=== PATIENT | male | born 1935 | race Caucasian/White ===

== ENCOUNTER → 2017-07-29 | Outpatient (CLI) | payer OTHER, BC ==
[~2017-07-29] VITALS: Ht 182.9 cm; Wt 79.4 kg
[~2017-07-29] MED LIST: ASPIRIN EC81 M1 PO; ATENOLOL 25 MG25 M1 PO; CALCIUM 600 +1 EAC1 PO; CARDIO TAB PO; CELEBREX 200 M200 MG PO; COMBIGAN EYE DR10 ML PO; COSOPT OCUMETER10 M1; DICLOFENAC POTA50 MG PO; FISH OIL 1,0001 EAC5 PO; HYDROCODON-ACE1 EAC5 PO; HYDROCODON-ACE1 EAC7 PO; LISINOPRIL20 MG PO; MEDROLDOSEPACK PO; MELOXICAM7.5 MG PO; MOBIC7.5 MG PO; MULTI VITAMIN1 EACH PO; NEURONTIN 300300 M1 PO; NEURONTIN 300M300 M2 PO; OMEGA-31000 M1 PO; SIMVASTATIN40 MG PO; VITAMIN B125000 MCG PO; VITAMIN C + RO500 MG PO; VITAMIN D35000 UNI1 PO; XALATAN2.5 ML OPHTHALMIC
--- NOTE | ~2017-07-29 | HPC ---
[facility] [address] [place] [address] PAIN MANAGEMENT CONSULTATION Name: JAMEYMALENA Gaby VOGT Room #: REG [facility]#: [id number] Admission: 07/29/17 Attend Phys: Arnaldo Mayers DO Discharge: Date of : 36 Report #: [id number] THIS REPORT FOR: //name// CC: Arnaldo Kaufman DATE OF SERVICE: 07/29/2017 REFERRING PHYSICIAN: Jose Kaufman MD CHIEF COMPLAINT: Bilateral lower extremity pain and paresthesias. HISTORY OF PRESENT ILLNESS: As you know, the patient is a very pleasant 82-year-old male who returns today in followup visit to undergo spinal cord stimulator trial and implantation. The patient has received proper authorizations for the patient to undergo the procedure. He returns today in followup visit, stating a pain level of 2-3/10, states pain is chronic in nature, aching, constant numbness and tingling in sensation, exacerbated with activities and walking, improves with lying down. He returns today to undergo spinal cord stimulator trial and implantation in hopes of improving pain. He denies new injury, new trauma that may have led to progression of symptoms. ALLERGIES: No known drug allergies. CURRENT MEDICATIONS: Hydrocodone/acetaminophen 10/325, one tab every 8 hours p.r.n. for pain; Cosopt twice a day; gabapentin 300 mg p.o. q.a.m.; multivitamin 1 tab per day; aspirin 81 mg per day; latanoprost one drop each eye per day; simvastatin 40 mg per day; atenolol 25 mg once a day; lisinopril 20 mg once a day. SOCIAL HISTORY: The patient denies tobacco, alcohol, IV or illicit drug use. He is working, not receiving workmen's compensation, unaccompanied today. History of osteoarthritis, not applicable. Fall risk, he has not had a fall in the past 3 months. No trouble with standing or walking, on blood thinners, no hypertension. Yes with current treatment, opioid therapy greater than 6 weeks is positive with a contract on chart. Opioid risk, too low risk. Functional assessment 35/70. PHYSICAL EXAMINATION: VITAL SIGNS: Blood pressure 143/70, pulse 70, respiratory rate 14 and unlabored. The patient is 98% on room air, height 6 feet tall, weight 175 pounds, BMI calculated 23.7. GENERAL: Well-developed, well-nourished, well-hydrated 82-year-old male appearing his stated age, placing current pain score 2-3/10. HEENT: Normocephalic, atraumatic. Pupils equal, round, reactive to light. [facility] [address] [place] [address] PAIN MANAGEMENT CONSULTATION Name: MALENA CONCEPCION JR Room #: REG [facility] Luis#: [id number] Admission: 07/29/17 Attend Phys: Arnaldo Mayers DO Discharge: Date of : 36 Report #: [id number] Extraocular muscles are intact. EXTREMITIES: Show no clubbing, no cyanosis, no edema. MUSCULOSKELETAL: Lower extremity strength equal and symmetrical, 5/5. Seated straight leg raising negative. Supine straight leg raising positive. Ling's test negative. Modified Gaenslen's positive for axial low back pain. Ankle clonus negative. Babinski is negative. ASSESSMENT: 1. Symptomatic lumbar radiculopathy. 2. Spinal stenosis of lumbar spine. 3. Displacement of lumbar intervertebral disk with radiculopathy. 4. Lumbosacral spondylosis with radiculopathy. 5. Lumbar degeneration. 6. Chronic intractable pain. PLAN: 1. The patient has returned today in followup visit to undergo spinal cord stimulator trial and implantation. The patient has successfully completed all evaluations and has received preauthorization for the patient to undergo the procedure. We have advised the patient of the risks and benefits of the procedure. These risks include but are not necessarily limited to bleeding, bruising, infection, worsening pain, no relief of pain, also risk of temporary or permanent muscle weakness, temporary or permanent nerve damage, possible paralysis and . The patient states understood and wished to proceed. 2. No medication changes were made at today's visit. The patient will continue current medical therapy as previously prescribed. 3. The patient to return to our clinic in 1 week. At that time, review the efficacy of the spinal cord stimulator trial to determine if permanent implant would be recommended. PROCEDURE NOTE DESCRIPTION OF PROCEDURE: Spinal cord stimulator trial and implantation. After obtaining written consent, a 22-gauge IV Hep-Lock was placed in the patient's right upper extremity. The patient was given IV prophylactic antibiotic over 30 minutes prior to procedure. The patient was then taken the fluoroscopy suite, placed in prone position with 2 pillows under abdomen to decrease the lumbar lordosis. Cardiopulmonary monitoring was established and the patient's vital signs were monitored throughout the procedure. The patient's thoracolumbar spine was prepped and draped with chlorhexidine and draped off in a sterile fashion. The patient was given no IV sedation prior to the procedure. AP fluoroscopic view was obtained to identify marked midline positions of the T10 through L2 spinous processes. Skin was anesthetized with 1% lidocaine, 5 mL on the left, 5 mL on the right for a total of 10 mL being provided. This was done prior to the introduction of 14-gauge 4 inch Tuohy needle. Skin entry site [address] [address] PAIN MANAGEMENT CONSULTATION Name: MALENA CONCEPCION JR Room #: REG [facility].#: [id number] Admission: 07/29/17 Attend Phys: Arnaldo Mayers DO Discharge: Date of : 36 Report #: [id number] was at the approximate level of the L1 vertebral body. Needle was advanced using a paramedian approach to the right of midline, approximately 45 degree angle. Loss of resistance to air was utilized to verify placement within the epidural space. Epidural space entered at the T12-L1 interspace. Lateral fluoroscopic view was obtained to confirm the position of the tip of the Tuohy needle within the epidural space. Aspiration noted to be negative for heme or cerebrospinal fluid. The patient did not complain of pain or paresthesias during needle placement. Spinal cord stimulating lead was then advanced through the Tuohy needle under direct visualization in the midline. Tip of the stimulating lead was aligned with the middle point of the T7 vertebral body, located in the midline. At this point, our attention was then directed to the left side. A 14-gauge 4 inch needle was advanced under fluoroscopic guidance at entry site of approximately L1 vertebral body. Needle was advanced using a paramedian approach to the midline approximately 45 degree angle. Loss of resistance to air was utilized to verify placement within the epidural space. Epidural space was entered at the T12-L1 interspace. Fluoroscopic imaging was obtained to confirm the position of the Tuohy needle within the epidural space. Aspiration noted to be negative for heme or cerebrospinal fluid. The patient did not complain of pain or paresthesia during needle placement. Spinal cord stimulating lead was then advanced through the Tuohy needle under direct visualization within the midline. Tip of the stimulating lead was aligned with the superior endplate of T8 vertebral body, located within midline. The stylets were then removed from the spinal cord stimulating leads. The Tuohy needles were then removed. We verified position of the leads throughout the removal process. We then anchored the leads on the patient's back with Steri-Strips and OpSite bandaging. Imaging was then obtained after the patient performed multiple calisthenics maneuvers, which had indicated no movement of the leads during this taping procedure or calisthenics procedures. The patient tolerated procedure well, carefully escorted to recovery room without complication. We spent over 30 minutes time, programming the spinal cord stimulator to obtain optimal coverage of the patient's pain. After meeting our discharge criteria, the patient was then discharged home. <ELECTRONICALLY SIGNED> By: Arnaldo Mayers DO 08/06/17 0902 [id number] Arnaldo Mayers DO /nt
[2017-07-29 07:10] VITALS: BP 143/70
== END | disposition home or self-care (01) ==
LOC: PAIN 06:52
DX: Z46.2 Encounter for fitting and adjustment of other devices related to nervous system and special senses (principal); M51.16 Intervertebral disc disorders with radiculopathy, lumbar region; M48.061 Spinal stenosis, lumbar region without neurogenic claudication; M47.27 Other spondylosis with radiculopathy, lumbosacral region; M51.36 Other intervertebral disc degeneration, lumbar region; G89.29 Other chronic pain; Z79.891 Long term (current) use of opiate analgesic; Z79.82 Long term (current) use of aspirin

== ENCOUNTER → 2017-08-04 | Outpatient (CLI) | payer OTHER, BC ==
--- NOTE | ~2017-08-04 | HPC ---
[facility] [place] [address] PAIN MANAGEMENT CONSULTATION Name: MALENA CONCEPCION Gaby Room #: REG [facility].#: [id number] Admission: 08/04/17 Attend Phys: Arnaldo Mayers DO Discharge: Date of : 36 Report #: [id number] THIS REPORT FOR: //name// CC: Arnaldo Kaufman MD DATE OF SERVICE: 08/04/2017 REFERRING PHYSICIAN: Jose Kaufman MD CHIEF COMPLAINT: Low back pain, bilateral lower extremity pain with paresthesias. HISTORY OF PRESENT ILLNESS: As you know, the patient is a very pleasant 82-year-old male who returns today in followup visit for discussion of efficacy with the spinal cord stimulator trial he has done over the past week. The patient indicates good efficacy with the device. At one point in time, he was reporting 100% improvement in overall pain, unfortunately we lost capture of his pain after some activities over the weekend. He does feel it is a successful trial. He returns today in followup visit to image the current position of the leads and to discuss possible moving forward with permanent implant. ALLERGIES: No known drug allergies. CURRENT MEDICATIONS: Hydrocodone, Cosopt, gabapentin, multivitamin, aspirin, latanoprost, simvastatin, atenolol, and lisinopril. SOCIAL HISTORY: The patient denies tobacco, alcohol, IV or illicit drug use. He is working, not receiving workmen's compensation, unaccompanied today. PQRS: The patient has no significant history of osteoarthritis, he is not a fall risk and has not had a fall in last 3 months. He has no trouble with standing or walking. He is on no blood thinners. His blood pressure is slightly elevated, but he is receiving treatment medically for his hypertension. The patient has been on opioid therapy greater than 6 weeks with a positive contract on chart, so opioid risk is extremely low. Functional assessment is 35/70. PHYSICAL EXAMINATION: VITAL SIGNS: Blood pressure 136/60, pulse is 72, respiratory rate 14 and unlabored, the patient is 98% on room air. GENERAL: Well-developed, well-nourished, well-hydrated 82-year-old male, appearing his stated age, he is placing current pain score at 2/10. HEENT: Normocephalic, atraumatic. Pupils are equal, round, and reactive to light. Extraocular muscles are intact. Sclerae are nonicteric without [address] [address] PAIN MANAGEMENT CONSULTATION Name: MALENA CONCEPCION JR Room #: REG [facility]#: [id number] Admission: 08/04/17 Attend Phys: Arnaldo Mayers DO Discharge: Date of : 36 Report #: [id number] injection. NEUROLOGIC: Cranial nerves 2-12 grossly intact. Speech is fluent. EXTREMITIES: Show no clubbing, no cyanosis, and no edema. MUSCULOSKELETAL: Lower extremity strength appears equal and symmetrical 5/5, muscle bulk and tone equal and symmetrical in lower extremities. Seated straight leg raising negative. Supine straight leg raising positive. Ling's test negative. ASSESSMENT: 1. Symptomatic lumbar radiculopathy. 2. Spinal stenosis of lumbar spine. 3. Displacement of lumbar intervertebral disk with radiculopathy. 4. Lumbosacral spondylosis with radiculopathy. 5. Lumbar degeneration. 6. Chronic intractable pain. PLAN: 1. The patient returns today in followup visit having good efficacy with the spinal cord stimulator, he does wish to move forward with the device itself. He had times during the trial where he was 100% improvement in overall pain, he has not had to resort back to any of his medications for pain control. He is extremely pleased with response to the treatment, does wish to move forward with the permanent implant. We did have loss of pain control that began basically late Friday and Friday, it appears that the leads had displaced, we took x-ray imaging and it did appear that the leads had moved cephalad losing contact with the "sweet spot" at the T9-10 level. The patient did have a significant improvement in symptoms during the trial itself and he does feel this is an effective treatment option and wishes to move forward. Given the fact the patient received excellent benefit during that timeframe prior to the Friday evening, Friday morning time frame, I do feel that it is an appropriate option to move forward as well. 2. No medication changes were made at today's visit. The patient will continue current medical therapy as previously prescribed. 3. We will see the patient back in followup visit on an as needed basis. We will be referring the patient to undergo permanent implant as quickly as possible, begin the process of referring for this permanent implant to be done at the patient's earliest convenience. PROCEDURE NOTE DESCRIPTION OF PROCEDURE: Explantation of spinal cord stimulating leads. After obtaining consent, the patient was placed in a seated position. The Steri-Strips and OpSite bandaging was removed from the patient's thoracolumbar area. Two leads were in place. There is no erythema, no drainage around the lead insertion sites. The leads were slowly extracted until both leads were [address] [address] PAIN MANAGEMENT CONSULTATION Name: MALENA CONCEPCION JR Room #: REG [facility]#: [id number] Admission: 08/04/17 Attend Phys: Arnaldo Mayers DO Discharge: Date of : 36 Report #: [id number] fully removed. Both leads had their 8 electrodes and tips intact. Bandages were placed over the insertion sites. The patient tolerated the explantation of the 2 spinal cord stimulating leads without complication. After meeting our discharge criteria, the patient discharged home. <ELECTRONICALLY SIGNED> By: Arnaldo Mayers DO 08/06/17 0902 0730 0813 Arnaldo Mayers DO /nt
[2017-08-04 13:28] VITALS: BP 136/60
== END ==
LOC: PAIN 07:03
DX: M48.061 Spinal stenosis, lumbar region without neurogenic claudication (principal); M51.16 Intervertebral disc disorders with radiculopathy, lumbar region; M47.27 Other spondylosis with radiculopathy, lumbosacral region; R20.2 Paresthesia of skin; G89.29 Other chronic pain

== ENCOUNTER → 2018-02-10 | Outpatient (CLI) | payer OTHER, BC ==
[~2018-02-10] VITALS: Ht 167.6 cm; Wt 82.2 kg
--- NOTE | ~2018-02-10 | HPC ---
[address] [address] PAIN MANAGEMENT CONSULTATION Name: MALENA CONCEPCION JR Room #: REG [facility] Allan.#: [id number] Admission: 02/10/18 Attend Phys: Arnaldo Mayers DO Discharge: Date of : 36 Report #: [id number] THIS REPORT FOR: //name// CC: Arnaldo Kaufman DATE OF SERVICE: 02/11/2018 CHIEF COMPLAINT: Low back pain, bilateral lower extremity pain with paresthesias. HISTORY OF PRESENT ILLNESS: As you know, the patient is an extremely pleasant 82-year-old male who returns today in followup visit to discuss spinal cord stimulator permanent implantation. He has some questions about the permanent implant before it is completed on 02/19/[address] Bryant. The patient indicates today pain level of around 2-3/10. Overall, the patient states he is doing pretty well. He returns requesting refill on his [place] to help with pain as he awaits the permanent implant. He is also wishing to begin the process of establishing appointments for postoperative incision evaluations. He returns to discuss these questions in regards to spinal cord stimulator and to schedule his followup appointments. ALLERGIES: No known drug allergies. CURRENT MEDICATIONS: Hydrocodone, Cosopt, gabapentin, multivitamin, aspirin, latanoprost, simvastatin, atenolol, lisinopril. SOCIAL HISTORY: The patient denies tobacco, alcohol, IV or illicit drug use. He is working, not receiving workmen's compensation, unaccompanied today. IMAGING: There is no new imaging available. PQRS: The patient has known osteoarthritis of the low back. No rheumatoid arthritis. He indicates pain intensity of 2-3/10. He is not a fall risk, has not had a fall in the last 3 months. He is not on blood thinners. He is treated for hypertension. He is on chronic opioids, but has no side effects to this treatment. He has a low risk for opioid dependency. PHYSICAL EXAMINATION: VITAL SIGNS: Blood pressure 111/61, pulse 63, respiratory rate 16, unlabored. The patient is 96% on room air. Height 5 feet 6 inches tall, weight 181.2 pounds, BMI calculated at 29.3. GENERAL: Well-developed, well-nourished, well-hydrated 82-year-old male. He appears his stated age, placing current pain score around 2-3/10. HEENT: Normocephalic, atraumatic. Pupils equal, round, [place] [address] PAIN MANAGEMENT CONSULTATION Name: MALENA CONCEPCION Gaby Room #: REG [facility]#: [id number] Admission: 02/10/18 Attend Phys: Arnaldo Mayers DO Discharge: Date of : 36 Report #: [id number] Extraocular muscles are intact. EXTREMITIES: Show no clubbing, no cyanosis, no edema. MUSCULOSKELETAL: Lower extremity strength is symmetrical 5/5, muscle bulk and tone equal and symmetrical. Seated straight leg raising negative. Supine straight leg raising positive. Fabere's test negative. Modified Gaenslen's positive for axial back pain. Ankle clonus negative. Babinski's negative. ASSESSMENT: 1. Symptomatic lumbar radiculopathy. 2. Spinal stenosis of lumbar spine. 3. Displacement of lumbar intervertebral disk with radiculopathy. 4. Lumbosacral spondylosis with radiculopathy. 5. Lumbar degeneration. 6. Chronic intractable pain. PLAN: 1. The patient returns today in followup visit what we have set for approximately 22 minutes and discussed his questions and concerns about spinal cord stimulator permanent implant. After this discussion, the patient felt more confident with moving forward with the procedure itself. He has a full understanding of the surgical procedure, the limitations he will have directly post surgery as well as limitations he will have for the first 6-8 weeks limiting both lifting above his head and reaching and bending at his waist. After this discussion, the patient felt comfortable. He is going to move forward with permanent implant. We have provided the patient with a refill of his hydrocodone 10/325 one tab every 8 hours p.r.n. for pain. I have given the patient #90 tablets. The patient was advised he can use this for his typical chronic pain, but also, he can use these if his surgical pain is intolerable. He has #90 tablets, will be willing to refill these if necessary post surgery. 2. The patient will be established an appointment on 02/25/2018 for first evaluation of surgical incisions. He will also then have a second established appointment on 03/04/2018 for 2-week followup for incisions. These were set on the books today. If he needs to make any alterations, he can contact our clinic. We wish the patient a good luck with his permanent implant of the spinal cord stimulator. I am sure he will do very well. We will see him back as indicated above. By: 1305 0031 Arnaldo Mayers DO /nt
[2018-02-10 09:47] VITALS: BP 111/61
== END ==
LOC: PAIN 06:57
DX: M47.27 Other spondylosis with radiculopathy, lumbosacral region (principal); M48.061 Spinal stenosis, lumbar region without neurogenic claudication; M51.16 Intervertebral disc disorders with radiculopathy, lumbar region; G89.4 Chronic pain syndrome

== ENCOUNTER → 2018-02-25 | Outpatient (CLI) | payer OTHER, BC ==
[~2018-02-25] VITALS: Ht 175.3 cm; Wt 82.6 kg
--- NOTE | ~2018-02-25 | HPC ---
[facility] [place] [address] PAIN MANAGEMENT CONSULTATION Name: JAMEYMALENAKAI VOGT Room #: [facility] [id number] Admission: 02/25/18 Attend Phys: Arnaldo Mayers DO Discharge: Date of : 36 Report #: [id number] THIS REPORT FOR: //name// CC: Arnaldo Kaufman DATE OF SERVICE: 02/25/2018 CHIEF COMPLAINT: Low back pain, bilateral extremity pain, right posterolateral thigh pain. HISTORY OF PRESENT ILLNESS: As you know, the patient is extremely pleasant 82-year-old male who returns today in followup visit having completed a spinal cord stimulator implantation. He underwent implantation last week and is returning to our clinic for a wound evaluation. He indicates he has done well from a surgical standpoint. His wounds have been healing appropriately. He is having some right posterolateral thigh pain directly over the greater trochanteric bursa. Deep palpation of the area causes intensification of pain. The patient has returned to discuss this new onset of pain on the right side, but also for wound checks. ALLERGIES: No known drug allergies. CURRENT MEDICATIONS: Hydrocodone, Cosopt, gabapentin, multivitamin, aspirin, latanoprost, simvastatin, atenolol, lisinopril. SOCIAL HISTORY: The patient denies tobacco, alcohol, IV or illicit drug use. He is working, not receiving workmen's compensation, unaccompanied today. IMAGING: No new imaging available. PQRS: The patient has osteoarthritis in low back. No rheumatoid arthritis. He is placing pain intensity around 3/10. He is not a fall risk, has not had a fall in the last 3 months. He is not on blood thinners. He is treated for hypertension. He is on chronic opioids and has low risk for opioid dependency. PHYSICAL EXAMINATION: VITAL SIGNS: Blood pressure 115/65, pulse 57, respiratory rate 14 and unlabored. The patient is 99% on room air. Height 5 feet 9 inches tall, weight 182 pounds, BMI calculated at 26.9. GENERAL: Well-developed, well-nourished, well-hydrated 82-year-old male. He appears his stated age. He is placing current pain score no greater than 3/10. HEENT: Normocephalic, atraumatic. Pupils equal, round, reactive to light. Speech is fluent. EXTREMITIES: Show no clubbing, no cyanosis, no edema. [address] [address] PAIN MANAGEMENT CONSULTATION Name: MALENA CONCEPCION JR Room #: [facility] [id number] Admission: 02/25/18 Attend Phys: Arnaldo Mayers DO Discharge: Date of : 36 Report #: [id number] MUSCULOSKELETAL: The patient has well-healed lower thoracic upper lumbar incision. This appears to be healing very well. There remains some granulation tissue over the incision, but this appears to be healing appropriately. The patient has a second incision over the right buttock area. There is some ecchymosis in the pocket itself, but the incision appears clean, dry, intact and healing well. There is some granulation tissue that remains. There is also noted palpatory tenderness over the right greater trochanteric bursa. Deep palpation causes intensification of pain. ASSESSMENT: 1. Chronic lumbar radiculopathy. 2. Spinal stenosis of lumbar spine. 3. Displacement of lumbar intervertebral disk with radiculopathy. 4. Lumbosacral spondylosis with radiculopathy. 5. Lumbar degeneration. 6. Greater trochanteric bursitis. 7. Chronic intractable pain. PLAN: 1. The patient returns today in followup visit for wound check, status post permanent implantation of a spinal cord stimulator. The patient did very well with the surgery. He is returning today for a wound evaluation. He appears to be healing appropriately. There is no concern of infection at present. The wounds do appear to be healing well. There is some granulation tissue both over the lower thoracic and upper lumbar area and the right pulse generator pocket, this is fairly typical for 1 week postop. I recommend the patient to be watchful and mindful of the area. He is to pat the areas out if he notes any irritation. We will see him back in 1 week for the second wound evaluation. 2. The patient does appear to have some greater trochanteric bursitis. Deep palpation of the area causes intensification of pain. We have provided the patient with samples of Flector and diclofenac oral medications to trial to help with the anti-inflammatory effects. If he is not improved by our next visit next week, we could consider the initiation of a steroid pack for the bursitis. If this is ineffective, bursa injections could be warranted. We will discuss this at followup visit. 3. We will see the patient back in followup visit 1 week from today for the second wound check from his spinal cord stimulator implant. <ELECTRONICALLY SIGNED> By: Arnaldo Mayers DO 02/26/18 0818 [id number] Arnaldo Mayers DO /nt
[2018-02-25 10:30] VITALS: BP 115/65
== END ==
LOC: PAIN 07:32
DX: M47.27 Other spondylosis with radiculopathy, lumbosacral region (principal); M51.16 Intervertebral disc disorders with radiculopathy, lumbar region; M48.061 Spinal stenosis, lumbar region without neurogenic claudication; G89.4 Chronic pain syndrome; M70.61 Trochanteric bursitis, right hip; Y93.89 Activity, other specified

== ENCOUNTER → 2018-05-27 | Outpatient (CLI) | payer OTHER, BC ==
[~2018-05-27] VITALS: Ht 175.3 cm; Wt 83.0 kg
--- NOTE | ~2018-05-27 | HPC ---
[facility] [address] [place] [address] PAIN MANAGEMENT CONSULTATION Name: JAMEYMALENAKAI VOGT Room #: REG BENJI Luis#: [id number] Admission: 05/27/18 Attend Phys: Arnaldo Mayers DO Discharge: Date of : 36 Report #: [id number] THIS REPORT FOR: //name// CC: Arnaldo Kaufman MD DATE OF SERVICE: 05/27/2018 CHIEF COMPLAINT: Low back pain, bilateral lower extremity pain with paresthesias, right greater than left. HISTORY OF PRESENT ILLNESS: As you know, the patient is a very pleasant 82-year-old male who returns today in followup visit for adjustments in his spinal cord stimulator. Unfortunately, his permanent implant has been less effective at treating symptoms than his trial implantation. The patient returns today for adjustments in his therapy in hopes of improving pain. He is also requesting refills of the hydrocodone as he awaits efficacy with the device implantation. He indicates pain today at level of 2-3/10. States pain is aching, constant, fire-like sensation and tender; exacerbated with walking, touching activities, lying on his left side; improves with medications and repositioning. He returns today for adjustments in his spinal cord stimulator and to receive refills of medications. ALLERGIES: No known drug allergies. CURRENT MEDICATIONS: Hydrocodone, Cosopt, gabapentin, multivitamins, aspirin, latanoprost, simvastatin, atenolol, lisinopril. SOCIAL HISTORY: The patient denies tobacco, alcohol, IV or illicit drug use. He is working, not receiving workmen's compensation, unaccompanied today. IMAGING: No new imaging available. PQRS: The patient has osteoarthritis, low back, bilateral hips mildly, bilateral knees mild, no rheumatoid arthritis. He is placing pain intensity at around 2-3/10. He is not a fall risk, has not had a fall in the last 3 months. He is not on blood thinners. He is treated for hypertension. He has been on opioids for an extended period of time. He has a low risk for opioid addiction. Pain impact tool indicates pain level of indicating mild interference of daily activities secondary to pain. PHYSICAL EXAMINATION: VITAL SIGNS: Blood pressure 130/71, pulse 63, respiratory rate 18 and unlabored. The patient is 98% on room air. Height 5 feet 9 inches tall, weight 183 pounds, BMI calculated 27. [address] [address] PAIN MANAGEMENT CONSULTATION Name: MALENA CONCEPCION Room #: REG [facility]#: [id number] Admission: 05/27/18 Attend Phys: Arnaldo Mayers DO Discharge: Date of : 36 Report #: [id number] GENERAL: Well-developed, well-nourished, well-hydrated 82-year-old male appearing stated age, placing current pain score 2-3/10. HEENT: Normocephalic, atraumatic. Pupils equal, round, reactive to light. Extraocular muscles are intact. Speech fluent. EXTREMITIES: Show no clubbing, no cyanosis, no edema. MUSCULOSKELETAL: The patient has well-healed surgical scar over the pulse generator site and the insertion site of the leads, well healed, no erythema, no drainage. He does have positive seated straight leg raising in the seated and supine position, mainly on the right. Pain is elicited with movement of the left leg in the Ling's procedure. ASSESSMENT: 1. Symptomatic lumbar radiculopathy. 2. Spinal stenosis of lumbar spine. 3. Displacement of lumbar intervertebral disk with radiculopathy. 4. Lumbosacral spondylosis with radiculopathy. 5. Lumbar degeneration. 6. Chronic intractable pain. PLAN: 1. The patient returns today in followup visit for further adjustment in his spinal cord stimulator. Unfortunately, his permanent implant has not been providing benefit as he had seen with the original trial implant. The patient indicates that he is receiving some benefit on the left, but there is no improvement on the right. This appears to be related to the positioning of the leads, possible adjustment may be necessary surgically though at this point, we will make some adjustments in the programming in hopes of improving pain. We will then adjust lead position if necessary in the future. We made multiple adjustments in the patient's spinal cord stimulator today with the assistance of the [facility] device phlebotomy services representative. We will determine if this is more effective. 2. The patient was provided prescription of hydrocodone 10/325 for which he takes 1 tab 3 times a day. I have given the patient #90 tablets, releases of today, 4 weeks from today, 8 weeks from today, 3 months' worth of medication. The patient was advised to take this medication only when pain is intolerable, not to rely on the medication prophylactically. 3. We will see the patient back in followup visit in 3 months for medication management, earlier if he needs further adjustments in his spinal cord stimulator or to discuss adjustments of the lead positioning to address ongoing pain. By: [id number] Arnaldo Mayers DO /nt
[2018-05-27 10:32] VITALS: BP 138/71
== END ==
LOC: PAIN 05-19 06:39
DX: M54.5 Low back pain (principal); M25.551 Pain in right hip; G89.29 Other chronic pain; Z79.891 Long term (current) use of opiate analgesic; Z79.899 Other long term (current) drug therapy

== ENCOUNTER → 2018-07-21 | Outpatient (CLI) | payer OTHER, BC ==
[~2018-07-21] VITALS: Ht 175.3 cm; Wt 83.9 kg
--- NOTE | ~2018-07-21 | HPC ---
[facility] [address] [place] [address] PAIN MANAGEMENT CONSULTATION Name: MALENA CONCEPCION JR Room #: REG MARIA MosesHelderFelipeHelder#: [id number] Admission: 07/21/18 Attend Phys: Arnaldo Mayers DO Discharge: Date of : 36 Report #: [id number] THIS REPORT FOR: //name// CC: Arnaldo Kaufman MD DATE OF SERVICE: 07/21/2018 REFERRING PHYSICIAN: Jose Kaufman M.D. CHIEF COMPLAINT: Low back pain and bilateral lower extremity pain with paresthesias, right greater than left. HISTORY OF PRESENT ILLNESS: As you know, the patient is a very pleasant 82-year-old male returning in followup visit to discuss treatment options for residual pain. Unfortunately, the patient's spinal cord stimulator has not provided the benefit. We had hoped he would see with the device itself. He has decided to turn the device off and has noted no change in his overall pain. He returns to request options for treatment for residual lumbar radicular symptoms. He is placing pain score today at around 2/10, states pain is constant, aching, fire-like sensation and tender and the pain is exacerbated with activities, walking, touching, lying on his right hip and improves with lying down and medications. He returns today for a discussion of other treatment options. ALLERGIES: No known drug allergies. CURRENT MEDICATIONS: Hydrocodone, Cosopt, gabapentin, multivitamin, aspirin, latanoprost, simvastatin, atenolol and lisinopril. SOCIAL HISTORY: The patient denies tobacco, alcohol or IV or illicit drug use. He is working, not receiving workmen's compensation, unaccompanied today. IMAGING DATA: No new imaging available. PQRS: The patient has known arthritic changes in the low back, bilateral hips and bilateral knees. No rheumatoid arthritis. He is placing his pain intensity today 2/10. He is not a fall risk, has not had a fall in the last 3 months. He is not on blood thinners. He is treated for hypertension. He has been on opioids for greater than 6 weeks. He is a low risk for opioid addiction. He is placing a pain impact score 11/70, mild interference of daily activities secondary to pain. PHYSICAL EXAMINATION: VITAL SIGNS: Blood pressure 115/65, pulse 64 and respiratory rate 16 and unlabored. The patient is 100% on room air. Height 5 feet 9 inches tall, [address] [address] PAIN MANAGEMENT CONSULTATION Name: MALENA CONCEPCION Gaby VOGT Room #: REG [facility]#: [id number] Admission: 07/21/18 Attend Phys: Arnaldo Mayers DO Discharge: Date of : 36 Report #: [id number] weight 185 pounds and BMI calculated 27.3. GENERAL: Well-developed, well-nourished, well-hydrated 82-year-old male appearing stated age, placing current pain score 2/10. HEENT: Normocephalic and atraumatic. Pupils equal, round and reactive to light. EXTREMITIES: Show no clubbing, no cyanosis and no edema. MUSCULOSKELETAL: Lower extremity strength equal and symmetrical 5/5. Seated straight leg raising negative. Supine straight leg raising positive on the right. Ling's test negative. ASSESSMENT: 1. Symptomatic lumbar radiculopathy. 2. Spinal stenosis of the lumbar spine. 3. Displacement of the lumbar intervertebral disk with radiculopathy. 4. Lumbosacral spondylosis with radiculopathy. 5. Lumbar degeneration. 6. Chronic intractable pain. PLAN: 1. The patient returns today in followup visit where we have discussed his spinal cord stimulator. The patient has had multiple adjustments made to the device over the past year and despite these adjustments, his symptoms have not improved. I have discussed this with the representatives of the device foam charger and they are in agreement. They did not feel the patient was going to see benefit with this device further. The patient has discontinued its use and has noted no change in overall pain. We discussed other options for treatment today and the following was discussed. We discussed physical therapy, stretching exercise, core strengthening. We discussed medication management to control pain. We discussed epidural injections, medial branch nerve blocks, radiofrequency lesioning as treatment options to address ongoing pain. We also discussed ultimately surgical intervention. After reviewing risks and benefits of all proposed treatment options and given the efficacy is noted with the medications, he chose to adjust medications. 2. The patient was provided prescription of hydrocodone/acetaminophen 10/325 one tab p.o. q. 6 hours p.r.n. for pain. I have given the patient #120 tablets. The patient states that he takes half a dose in the morning and a full dose at around 2:00. He does fairly well on normal days. There are sometimes he feels the pain exacerbate and he has to take as many as four a day and even with this for a day dosing, he is doing very well and no side effects with the therapy. It does appear he is doing well with medication and there is no need to look into other treatment options if this is ineffective treatment option for the patient. We discussed this again today. The patient feels comfortable with continuing opioid medications for pain control. I have advised the patient if his concerns are for acute exacerbation of symptoms with increasing activity, he [address] [place] [address] PAIN MANAGEMENT CONSULTATION Name: MALENA CONCEPCION JR Room #: [facility] [id number] Admission: 07/21/18 Attend Phys: Arnaldo Mayers DO Discharge: Date of : 36 Report #: [id number] can take the dose of hydrocodone 20 minutes before the participating in these higher-level activities and this should improve his overall pain. It certainly will not improve long-term stamina but will improve overall pain. The patient is amenable to make this adjustment. 3. We will see the patient back in followup visit in 3 months. We will discuss the efficacy of the medication at the followup visit. If he has questions or concerns, he can contact the clinic at any time. By: [id number] Arnaldo Mayers DO /nt
[2018-07-21 13:09] VITALS: BP 115/65
--- NOTE | 2018-07-21 13:21 | NUR ---
Pain Clinic Assessment: 1. History of Osteoarthritis: BACK HANDS History of Rheumatoid Arthritis: Not Applicable 2. Height: 5 ft. 9 in. 175.3 cm. Weight: 185.0 lb. oz. 83.916 kg. Patient's BMI: 27.3 3. Vital Signs: BP: 115/65 Pulse: 64 Resp: 16 Temp: 02 Sat: 100 ECG Mon: 4. Pain Intensity: 2 5. Fall Risk: Dizziness: N Needs help standing or walking: N Fallen in the last 3 months: N Fall risk comments: 6. Patient on Blood Thinner: None 7. History of Hypertension: Y 8. Opioid Therapy greater than 6 weeks: Y Opiate Contract Signed: 9. Risk Assessment Tool Provided: LOW RISK 10. Functional Assessment Tool: 11. Recreational Drug Use: Never Drug Type: Tobacco Use: Never Smoker Tobacco Type: Amount or Packs/day: How Many Years: Alcohol Use: No Frequency: Quant:
== END ==
LOC: PAIN 06:55
DX: M47.27 Other spondylosis with radiculopathy, lumbosacral region (principal); M48.061 Spinal stenosis, lumbar region without neurogenic claudication; G89.4 Chronic pain syndrome; R20.2 Paresthesia of skin

== ENCOUNTER → 2018-09-23 | Outpatient (CLI) | payer OTHER, BC ==
[~2018-09-23] VITALS: Ht 175.3 cm; Wt 80.7 kg
[~2018-09-23] MED LIST changes: +MOVANTIK25 MG PO; +OXYCODONE-ACET1 EAC2 PO
--- NOTE | ~2018-09-23 | HPC ---
[facility] [place] [address] PAIN MANAGEMENT CONSULTATION Name: MALENA CONCEPCION JR Room #: REG [facility] Luis#: [id number] Admission: 09/23/18 ������������������ Attend Phys: Arnaldo Mayers DO Discharge: ������������������ Date of : 36 Report #: [id number] THIS REPORT FOR: //name// CC: Arnaldo Kaufman DATE OF SERVICE: 09/23/2018 ADDENDUM MUSCULOSKELETAL: The patient is exquisitely tender to palpation at the T11 level. Deep palpation of the area causes intensification of pain. There also appears to be increased tenderness over the L1 spinous process. Deep palpation again causes intensification of pain. Lower extremity strength is symmetrical. There is no ecchymosis over area. ASSESSMENT: 1. Concern for thoracic compression fracture. 2. Lumbosacral spondylosis with radiculopathy. 3. Chronic lumbar radiculopathy. PLAN: 1. 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 I am very concerned that the patient may have suffered a compression fracture at the levels indicated above, T11 and L1. I recommend the patient undergo x-ray imaging immediately, the results will then help determine the course of treatment. The patient will undergo x-ray imaging of the thoracolumbar area at his earliest convenience. We will review the findings once they are available. 2. We did discuss the possibility of having the patient treated for compression fractures. We discussed today rest, relaxation and decreasing weight lifting, which would allow the fractures to remain relatively stable. We discussed the possibility of utilizing TLSO bracing or even a kyphoplasty procedure. These recommendations were given to the patient in general form at the visit today. It will depend on the findings of the x-ray before we move forward with any definitive treatment options. The patient is amenable to all the treatment options, but wishes to remain as conservative as possible at this time. 3. We have agreed to increase his hydrocodone 10/325 to oxycodone 10/325 for a short period of time. I have given the patient #90 tablets, advised the patient to watch for severe constipation, somnolence, decreased mental acuity, disorientation with the use of the higher dose opioid. He is to utilize the medication only when pain is intolerable. He was given #90 tablets with no refills. 4. The patient has requested and we have provided a medication for opioid-induced constipation in the form of Movantik 25 mg dose 1 tablet p.o. q. day. I have given the patient #30 tablets to take when necessary. He was given [address] [address] PAIN MANAGEMENT CONSULTATION Name: MALENA CONCEPCION Room #: [facility] [id number] Admission: 09/23/18 ������������������ Attend Phys: Arnaldo Mayers DO Discharge: ������������������ Date of : 36 Report #: [id number] the prescription in written form today. 6. The patient will contact our clinic tomorrow morning. If we do not hear from him, we will contact him to advise the findings of the x-ray imaging and to determine if more aggressive treatment options will be necessary. ��������������������������������������������� ���������������������������������������� By: ��������������������������������������������� [id number] Arnaldo Mayers DO /nt
--- NOTE | ~2018-09-23 | HPC ---
[facility] [address] [place] [address] PAIN MANAGEMENT CONSULTATION Name: JAMEYMALENAKAI VOGT Room #: REG [facility] [id number] Admission: 09/23/18 ������������������ Attend Phys: Arnaldo Mayers DO Discharge: ������������������ Date of : 36 Report #: [id number] THIS REPORT FOR: //name// CC: Arnaldo Kaufman DATE OF SERVICE: 09/23/2018 REFERRING PHYSICIAN: Jose Kaufman MD CHIEF COMPLAINT: Mid thoracic pain. HISTORY OF PRESENT ILLNESS: As you know, the patient is a very pleasant 83-year-old male returning in followup visit with acute onset of mid thoracic pain. The patient states he was in his normal state of health when this pain began to occur. He states he was outside doing activities, bent over to grab some objects off the ground, felt instantaneous pain in the mid thoracic area concerning of possible fracture. He is placing pain today at 7/10. He states that after this injury, he has continued to experience increasing pain. There is no radiation of symptoms into the lower extremities. He states the pain is aching, constant, fire-like and tender in sensation, and exacerbated with walking, standing, deep breathing, coughing or sneezing. It improves with lying down and medication. He returns today in followup visit to discuss new onset of mid thoracic pain. ALLERGIES: No known drug allergies. CURRENT MEDICATIONS: Hydrocodone 10/325 one tablet p.o. q. 6 hours p.r.n. pain, calcium carbonate 1 tablet per day, cyanocobalamin 5000 mcg per day, omega-3 fish oil 1 tablet per day, Cosopt 1 drop each eye twice a day, gabapentin 300 mg once a day, multivitamin 1 tablet per day, aspirin 81 mg per day, latanoprost 1 drop each eye per day, simvastatin 40 mg once a day, atenolol 25 mg once a day, lisinopril 20 mg once a day. SOCIAL HISTORY: The patient denies tobacco, alcohol, IV or illicit drug use. He is working, not receiving workmen's compensation, unaccompanied today. IMAGING: No new imaging available. PQRS: The patient has known osteoarthritic changes of the lumbar spine, bilateral hips. No rheumatoid arthritis. He is placing pain intensity today at 7/10. He is not a fall risk, has not had a fall in the last 3 months. He is not on blood thinners. He is treated for hypertension. He has been on opioids for greater than 6 weeks, but has a low opioid addiction potential. He is placing pain impact score today at 11/70 indicating mild interference of daily [address] [address] PAIN MANAGEMENT CONSULTATION Name: MALENA CONCEPCION JR Room #: REG MARIA Smith#: [id number] Admission: 09/23/18 ������������������ Attend Phys: Arnaldo Mayers DO Discharge: ������������������ Date of : 36 Report #: [id number] activities secondary to pain. PHYSICAL EXAMINATION: VITAL SIGNS: Blood pressure 116/76, pulse 73, respiratory rate 16 and unlabored. The patient is 100% on room air. Height 5 feet 9 inches tall, weight 178 pounds, BMI calculated 26.3. GENERAL: Well-developed, well-nourished, well-hydrated, kyphotic 83-year-old male, appearing stated age. He is placing pain score today at around 7/10. HEENT: Normocephalic, atraumatic. Pupils equal, round, reactive to light. EXTREMITIES: Show no clubbing, no cyanosis and no edema. MUSCULOSKELETAL: The patient has exquisite tenderness to palpation over the T11, T12, L1 interspaces. Deep palpation of the area causes DICTATION ENDS HERE. ��������������������������������������������� ���������������������������������������� By: ��������������������������������������������� [id number] Arnaldo Mayers, /nt
[2018-09-23 09:11] VITALS: BP 116/76
--- NOTE | 2018-09-23 09:15 | NUR ---
Pain Clinic Assessment: 1. History of Osteoarthritis: BACK HANDS History of Rheumatoid Arthritis: Not Applicable 2. Height: 5 ft. 9 in. 175.3 cm. Weight: 178.0 lb. oz. 80.740 kg. Patient's BMI: 26.3 3. Vital Signs: BP: 116/76 Pulse: 73 Resp: 16 Temp: 02 Sat: 100 ECG Mon: 4. Pain Intensity: 7 5. Fall Risk: Dizziness: N Needs help standing or walking: N Fallen in the last 3 months: N Fall risk comments: 6. Patient on Blood Thinner: None 7. History of Hypertension: Y 8. Opioid Therapy greater than 6 weeks: Y Opiate Contract Signed: 9. Risk Assessment Tool Provided: LOW RISK 10. Functional Assessment Tool: 11. Recreational Drug Use: Never Drug Type: Tobacco Use: Never Smoker Tobacco Type: Amount or Packs/day: How Many Years: Alcohol Use: No Frequency: Quant:
== END ==
LOC: PAIN 07:01
DX: S22.088A Other fracture of T11-T12 vertebra, initial encounter for closed fracture (principal); S32.018A Other fracture of first lumbar vertebra, initial encounter for closed fracture; M47.27 Other spondylosis with radiculopathy, lumbosacral region; M16.0 Bilateral primary osteoarthritis of hip; M25.78 Osteophyte, vertebrae; Z79.891 Long term (current) use of opiate analgesic; Z79.899 Other long term (current) drug therapy; X58.XXXA Exposure to other specified factors, initial encounter; Y93.89 Activity, other specified; Y92.89 Other specified places as the place of occurrence of the external cause; Y99.8 Other external cause status

== ENCOUNTER → 2018-11-10 | Outpatient (CLI) | payer OTHER, BC ==
[~2018-11-10] VITALS: Ht 175.3 cm; Wt 77.7 kg
[~2018-11-10] MED LIST changes: +DURAGESIC1 EACH TRANSDERM
[2018-11-10 13:00] VITALS: BP 123/68
--- NOTE | 2018-11-10 13:12 | NUR ---
Pain Clinic Assessment: 1. History of Osteoarthritis: BACK HANDS History of Rheumatoid Arthritis: Not Applicable 2. Height: 5 ft. 9 in. 175.3 cm. Weight: 171.2 lb. oz. 77.656 kg. Patient's BMI: 25.3 3. Vital Signs: BP: 123/68 Pulse: 66 Resp: 16 Temp: 02 Sat: 98 ECG Mon: 4. Pain Intensity: 5-7 5. Fall Risk: Dizziness: N Needs help standing or walking: N Fallen in the last 3 months: N Fall risk comments: 6. Patient on Blood Thinner: None 7. History of Hypertension: Y 8. Opioid Therapy greater than 6 weeks: Y Opiate Contract Signed: 9. Risk Assessment Tool Provided: LOW RISK 10. Functional Assessment Tool: 11. Recreational Drug Use: Never Drug Type: Tobacco Use: Never Smoker Tobacco Type: Amount or Packs/day: How Many Years: Alcohol Use: No Frequency: Quant:
--- NOTE | 2018-11-17 07:41 | HPC ---
[facility] [address] [place] [address] PAIN MANAGEMENT CONSULTATION Name: MALENA CONCEPCION JR Room #: REG BENJI JosuéHelderFelipeHelder#: [id number] Admission: 11/10/18 ������������������ Attend Phys: Arnaldo Mayers DO Discharge: ������������������ Date of : 36 Report #: [id number] THIS REPORT FOR: //name// CC: Arnaldo Kaufman MD DATE OF SERVICE: 11/10/2018 REFERRING PHYSICIAN: Jose Kaufman M.D. CHIEF COMPLAINT: Axial back pain and mid thoracic pain. HISTORY OF PRESENT ILLNESS: As you know, the patient is a very pleasant 83-year-old male who returns today in followup visit with continued thoracic pain. He has undergone imaging of the thoracic area obtained 09/23/2018, which showed T11 compression fracture that was chronic and an L1 compression fracture that appeared chronic. He continues to experience pain over these areas. He is placing pain today 5-01/13. He returns today in followup visit to discuss treatment options. At last visit, we discussed the possibility of having the patient utilize a Banggood brace and utilize medication management for pain control. The patient has yet to obtain the brace, but he is utilizing medications. Even with medications, he states his function has completely deteriorated. He returns today in followup visit to discuss potential treatment options. ALLERGIES: No known drug allergies. CURRENT MEDICATIONS: Movantik, Percocet, calcium carbonate, cyanocobalamin, omega-3 fish oil, Cosopt, gabapentin, multivitamin, aspirin, latanoprost, lisinopril, atenolol and simvastatin. SOCIAL HISTORY: The patient denies tobacco, alcohol, IV or illicit drug use. He is working, not receiving workmen's compensation, unaccompanied today. IMAGING DATA: There is no new imaging available. PQRS: The patient has no known osteoarthritic changes of the lumbar spine, bilateral hands. No rheumatoid arthritis. He is placing pain intensity today, 5-7/10, is not a fall risk, has not had a fall in the last 3 months. He is not on blood thinners, but is treated for hypertension. He is on chronic opioid medications and is a low risk for opioid addiction. He is placing pain impact score 11/70, mild interference of daily activities secondary to pain. PHYSICAL EXAMINATION: VITAL SIGNS: Blood pressure 123/68, pulse 66 and respiratory rate 16 and [facility] [address] [place] [address] PAIN MANAGEMENT CONSULTATION Name: MALENA CONCEPCION [id number] Admission: 11/10/18 ������������������ Attend Phys: Arnaldo Mayers DO Discharge: ������������������ Date of : 36 Report #: [id number] unlabored. The patient is 98% on room air. Height 5 feet 9 inches tall, weight 171.2 pounds and BMI calculated 25.3. GENERAL: Well-developed, well-nourished and well-hydrated 83-year-old male who appears his stated age. He is in mild distress secondary to pain, placing current pain score between 5-7/10. HEENT: Normocephalic and atraumatic. Pupils equal, round and reactive to light. Extraocular muscles are intact. Sclerae nonicteric without injection. NEUROLOGICAL: Cranial nerves 2 through 12 grossly intact. Speech fluent. The patient deemed a good historian. EXTREMITIES: Show no clubbing, no cyanosis and no edema. MUSCULOSKELETAL: The patient remains tender to palpation over the thoracolumbar area overlying old compression fractures. There is no new spinous process tenderness. No ecchymosis and no skin color changes overlying the painful areas. Deep inhalation and exhalation does not met with any increasing pain. ASSESSMENT: 1. Vertebral compression fractures at T11-L1. 2. Chronic thoracic pain. 3. Chronic low back pain. PLAN: 1. The patient has returned today in followup visit where we have discussed once again the findings of the x-ray of September 2018. The patient chose not to undergo interventional treatments to address these compression fractures as they appeared either chronic or subacute on x-ray imaging. He chose to utilize more traditional treatment options. We had suggested the patient use a Banggood brace, but he has not obtained this brace. This would stabilize the back and provide the patient with some improved stability and decrease in pain. We discussed this once again today. We have also discussed the possibility of making changes in medication management at this time to address ongoing pain issues, so the patient can return to function. He is amenable to make adjustments in medication today. 2. We will start the patient on a 12 mcg fentanyl patch 1 patch q. 72 hours. I have advised the patient to use the patch for the next 6 days. At the end of those 6 days, contact the clinic to determine if we need to increase that patch dosing. We are starting at the lowest dose in hopes of providing best efficacy with low side effects. There is a possibility we may need to increase the dosing to 25 mcg based on the response. He will watch for side effects of somnolence, decreased mental acuity, disorientation, confusion, mental slowing and constipation with the medication addition. He was given a prescription in written form today. 3. The patient was provided refill prescription of [place] 10/325 one tab p.o. q. 6 hours p.r.n. for pain, I have given the patient #120 to utilize for breakthrough pain. 4. The patient is going to look into the [employer] for possible purchase. He will consider this option after trialing the medications. [facility] [address] [place] [address] PAIN MANAGEMENT CONSULTATION Name: MALENA CONCEPCION Room #: REG [facility] Luis#: [id number] Admission: 11/10/18 ������������������ Attend Phys: Arnaldo Mayers DO Discharge: ������������������ Date of : 36 Report #: [id number] 5. The patient will contact our clinic in the next 6 days to advise the efficacy of the fentanyl added today. ��������������������������������������������� <ELECTRONICALLY SIGNED> ���������������������������������������� By: Arnaldo Mayers DO ��������������������������������������������� 11/17/18 [id number] Arnaldo Mayers DO /nt
== END ==
LOC: PAIN 06:53
DX: M48.55XD Collapsed vertebra, not elsewhere classified, thoracolumbar region, subsequent encounter for fracture with routine healing (principal); G89.4 Chronic pain syndrome

== ENCOUNTER → 2018-12-22 | Outpatient (CLI) | payer OTHER, BC ==
[~2018-12-22] VITALS: Ht 175.3 cm; Wt 74.8 kg
--- NOTE | ~2018-12-22 | HPC ---
[facility] [place] [address] PAIN MANAGEMENT CONSULTATION Name: JAMEYMALENA Gaby VOGT Room #: [facility] [id number] Admission: 12/22/18 ������������������ Attend Phys: Arnaldo Mayers DO Discharge: ������������������ Date of : 36 Report #: [id number] THIS REPORT FOR: //name// CC: Arnaldo Kaufman MD DATE OF SERVICE: 12/22/2018 REFERRING PHYSICIAN: Dr. Kaufman. CHIEF COMPLAINT: Axial back pain. HISTORY OF PRESENT ILLNESS: As you know, the patient is a very pleasant 83-year-old male who returns today in followup visit to review recent radiographs of the thoracic spine. The patient states that he has recently been noted to have compression fractures by his chiropractor and advised that he would need possible surgical options. He returns to discuss those findings. He indicates pain today at a level of 3/10, is well treated with hydrocodone with pain improvement. Yet, the patient is reporting he has to take more hydrocodone per day than he has in the past, which is fairly typical for opioid medication-management patients as they do become tolerant to therapy. He returns to review his recent MRI and discuss treatment options. ALLERGIES: No known drug allergies. CURRENT MEDICATIONS: Hydrocodone, Cosopt, gabapentin, multivitamin, aspirin, latanoprost, simvastatin, atenolol, lisinopril. SOCIAL HISTORY: The patient denies tobacco, alcohol, IV or illicit drug use. He is working, not receiving workmen's compensation, unaccompanied today. IMAGING: MRI of the thoracic spine shows compression fractures at T12 with near 70% loss of height and mild associated kyphosis. There is compression fracture at T10, which is new from a study of 01/31/2017, but is chronic in nature. This was noted on x-ray imaging nearly a year ago. There is noted slight compression of L3 and L4 demonstrated with 20% loss of height, this is chronic in nature, known from previous x-ray imaging. PQRS: The patient has osteoarthritic change to lumbar spine, bilateral hips and bilateral knees. No rheumatoid arthritis. Today, he is placing pain score 4/10. He is not a fall risk, has not had a fall in the last 3 months. He is not on blood thinners. He is treated for hypertension. He has been on opioids for 6 weeks or greater. He has a low opioid addiction potential. Pain impact score today is reported again at , mild interference of daily activities secondary to pain. [address] [address] PAIN MANAGEMENT CONSULTATION Name: MALENA CONCEPCION Gaby Room #: REG [facility].#: [id number] Admission: 12/22/18 ������������������ Attend Phys: Arnaldo Mayers DO Discharge: ������������������ Date of : 36 Report #: [id number] PHYSICAL EXAMINATION: VITAL SIGNS: Blood pressure 133/66, pulse 71, respiratory rate 16 and unlabored. The patient is 98% on room air. Height 5 feet 9 inches tall, weight 165 pounds, BMI calculated 24.4. GENERAL: Well-developed, well-nourished, well-hydrated, kyphotic 83-year-old male appearing stated age, pain is rated around 3-4/10. HEENT: Normocephalic, atraumatic. Pupils equal, round, reactive to light. EXTREMITIES: Show no clubbing, no cyanosis, and no edema. MUSCULOSKELETAL: Palpatory tenderness noted over the paraspinal musculature of the mid thoracic, lower thoracic and lumbar spine. No spinous process tenderness. There is noted kyphosis with stance. Upper and lower extremity strength equal and symmetrical. Intact to light touch from T1 through T12 dermatomes, again from L1 through S2 dermatomes. ASSESSMENT: 1. Multiple chronic vertebral compression fractures. 2. Kyphosis. 3. 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 4. History of chronic lumbar radiculopathy. 5. Intractable pain. PLAN: 1. The patient returns today in followup visit where we spent over 21 minutes of time reviewing the patient's MRI, how it correlates to the findings of his current pain. I have noted these compression fractures on x-ray imaging in the past, none of these appear new or recent. All appear chronic in nature. Loss of height at the levels is not going to be correctable as the compression fractures are chronic. The patient is beginning to experience increasing overall pain due to changes in mechanics. He wishes to discuss his case further with Neurosurgery just to confirm any type of surgical options. We have discussed the MRI findings today and the following we discussed for treatment options. 2. We discussed physical therapy, stretching exercise, core strengthening as a way to treat the overall symptoms of his axial back. Resolution of the compression fractures is not going to be possible medically or from a surgical standpoint, the compression fractures themselves are healed and chronic in nature and cannot be adjusted further. We discussed medication management that we recommend for pain control. Again, there is no weight adjust or repair of the patient's fractures, so treatment should be considered more conservative and symptom-directed. Certainly, the patient could use a TLSO brace while participating in activities that require extra weightbearing. This could reduce the potential for compression fractures above or below these chronic known compression fractures occurring. As you are aware risk of compression fractures elevates quite quickly with spontaneous fractures seen in this patient. At present, based on current calculations, he has a 75 fold increase of compression [facility] [address] [place] [address] PAIN MANAGEMENT CONSULTATION Name: JAMEYMALENAKAI VOGT Room #: REG MARIA Allan.#: [id number] Admission: 12/22/18 ������������������ Attend Phys: Arnaldo Mayers DO Discharge: ������������������ Date of : 36 Report #: [id number] fractures above or below given the 3 fractures noted on x-ray imaging. Bracing would be an effective treatment option when the patient is being active. We also discussed the more aggressive interventional treatments. The patient does wish to discuss his case further with Neurosurgery before determining his course of treatment. 3. We have taken the liberty of providing the patient a referral to Dr. Yazan Husain, [facility]. The patient has been advised by his primary care physician, other physicians that he is to come in contact with, as well as ourselves, about seeing Dr. Husain, he wishes to do this before moving forward with any treatment options. We have taken the liberty of providing the patient a referral to Dr. Husain's office to be seen in consultation. 4. We will see the patient back in followup visit on an as-needed basis. We made no adjustments in his medication, but did refill his current therapy in the form of hydrocodone 10/325 one tab p.o. q.6 hours p.r.n. for pain, I have given the patient #120 tablets with refills of today, 4 weeks from today, 8 weeks from today, 3 months' worth of medication, so the patient can continue on this analgesic therapy while he awaits surgical consultation. 5. We will be available to see the patient back in followup visit to discuss options for treatment after he has had a chance to discuss his case with Neurosurgery. ��������������������������������������������� ���������������������������������������� By: ��������������������������������������������� [phone] Arnaldo Mayers DO /nt
[2018-12-22 12:57] VITALS: BP 133/66
--- NOTE | 2018-12-22 13:02 | NUR ---
Pain Clinic Assessment: 1. History of Osteoarthritis: BACK HANDS History of Rheumatoid Arthritis: Not Applicable 2. Height: 5 ft. 9 in. 175.3 cm. Weight: 165.0 lb. oz. 74.844 kg. Patient's BMI: 24.4 3. Vital Signs: BP: 133/66 Pulse: 71 Resp: 16 Temp: 02 Sat: 98 ECG Mon: 4. Pain Intensity: 3 5. Fall Risk: Dizziness: N Needs help standing or walking: N Fallen in the last 3 months: N Fall risk comments: 6. Patient on Blood Thinner: None 7. History of Hypertension: Y 8. Opioid Therapy greater than 6 weeks: Y Opiate Contract Signed: 9. Risk Assessment Tool Provided: LOW RISK 10. Functional Assessment Tool: 11. Recreational Drug Use: Never Drug Type: Tobacco Use: Never Smoker Tobacco Type: Amount or Packs/day: How Many Years: Alcohol Use: No Frequency: Quant:
== END ==
LOC: PAIN 06:57
DX: M47.817 Spondylosis without myelopathy or radiculopathy, lumbosacral region (principal); G89.29 Other chronic pain; M40.209 Unspecified kyphosis, site unspecified; M48.50XA Collapsed vertebra, not elsewhere classified, site unspecified, initial encounter for fracture; Z79.899 Other long term (current) drug therapy

== ENCOUNTER → 2019-03-03 | Outpatient (CLI) | payer OTHER, BC ==
[~2019-03-03] VITALS: Ht 177.8 cm; Wt 72.6 kg
--- NOTE | ~2019-03-03 | HPC ---
[facility] [place] [address] PAIN MANAGEMENT CONSULTATION Name: JAMEYMALENA Gaby VOGT Room #: REG [facility]#: [id number] Admission: 03/03/19 Attend Phys: Jose Kaufman MD Discharge: Date of : 36 Report #: [id number] THIS REPORT FOR: //name// CC: Jose Kaufman MD DATE OF SERVICE: 03/03/2019 CHIEF COMPLAINT: Axial back pain. HISTORY OF PRESENT ILLNESS: As you know, the patient is a very pleasant 83-year-old male who returns today in followup visit with continued axial back pain, now experiencing some anterior chest wall pain located at the inferior portion of the ribs and diaphragm level. He indicates pain begins upon arising in the morning, but improves with stretching, relaxation and standing fully erect. He indicates his pain has progressed over the past period of time, returning to discuss the options for treatment. He denies new injury or trauma. Recent x-ray imaging shows stable vertebral compression fractures. He returns to discuss options for treatment for this new onset of anterior wall abdominal/chest pain. ALLERGIES: No known drug allergies. CURRENT MEDICATIONS: Hydrocodone, Cosopt, gabapentin, multivitamins, aspirin, latanoprost, simvastatin, lisinopril and atenolol. SOCIAL HISTORY: The patient denies tobacco, alcohol, IV or illicit drug use. He is working, not receiving workmen's compensation, unaccompanied today. IMAGING: No new imaging available. PQRS: The patient has known arthritic changes of the lumbar spine, bilateral hips and bilateral knees, no rheumatoid arthritis. He is placing pain today at 3/10, not a fall risk, has not had a fall in last 3 months. He is not on blood thinners, but is treated for hypertension. He is on chronic opioids. He has a low risk for opioid addiction. He is placing pain impact score 13/70, mild interference of daily activities secondary to pain. PHYSICAL EXAMINATION: VITAL SIGNS: Blood pressure 118/70, pulse 62, respiratory rate 16 and unlabored. The patient is 98% on room air. Height 5 feet 10 inches tall, weight 160 pounds and BMI calculated 23.0. GENERAL: Well-developed, well-nourished, well-hydrated kyphotic 83-year-old male appearing his stated age, pain is rated up to 3/10. HEENT: Normocephalic, atraumatic. Pupils equal, round, reactive to light. Extraocular muscles are intact. Sclerae nonicteric without injection. [address] [address] PAIN MANAGEMENT CONSULTATION Name: MALENA CONCEPCION Room #: REG [facility]#: [id number] Admission: 03/03/19 Attend Phys: Jose Kafuman MD Discharge: Date of : 36 Report #: [id number] NEUROLOGIC: Cranial nerves 2 through 12 grossly intact. Speech fluent. The patient is deemed a good historian. EXTREMITIES: Show no clubbing, no cyanosis, and no edema. MUSCULOSKELETAL: He has some palpatory tenderness over the anterior chest wall, correlating to the area of the diaphragmatic region. The patient indicates no radicular component to his symptoms. There is no rash, lesions, or ulcerations overlying the area of discomfort. Deep inhalation and exhalation actually improves overall pain, as does standing more erect with shoulders back and chest forward. ASSESSMENT: 1. Axial back pain. 2. Severe kyphosis. 3. Vertebral compression fractures of the thoracic spine. 4. Anterior chest wall pain. PLAN: 1. Based on today's physical exam and history the patient has provided, the description the patient uses in regards to pain, as well as the factors that provocate and alleviate his symptoms, likely source of the patient's pain is myofascial in origin. It does appear that the patient's positioning with the new kyphosis that has progressed with his fractures that his anterior abdominal/chest wall pain is due to this repositioning. The patient reports near complete resolution of symptoms with standing more erect and placing his shoulders back and chest out in a more anatomical positioning. I believe his pain is related to the compression of the anterior chest wall and the diaphragm area with this new kyphosis. We have discussed options for treatment and I would recommend more conservative treatment option at this juncture. 2. The patient was seen by Neurosurgery. He has been advised there is no surgical procedure that can alleviate his current symptoms. He was advised to trial a more conservative treatment options. We reviewed the neurosurgery evaluation with the patient today. He is amenable to making some adjustments from a physiologic standpoint. 3. Recommend the patient utilize medication as directed. Upon arising in the morning, he should take this medication immediately. It will take about a half hour for the medications to take effect. We recommend that he take this before even getting out of bed, take the medication, and then do his stretching. He was advised of today. This should make arising more easily. Once he is up and about, he is to continue to maintain a good posture. This will improve his overall symptoms. This with the stretching exercises should improve his anterior upper abdominal/lower chest wall symptoms. The patient does note resolution of symptoms typically occurs within 15-20 minutes of arising. He does not have much of a problem during the day. I believe this is strictly a positioning issue and if he does follow the exercise program and the medication treatment, he should see good efficacy. I do not feel bracing systems are necessary in this patient's case, nor will, I think, it provide much in the way [facility] [address] [place] [address] PAIN MANAGEMENT CONSULTATION Name: MALENA CONCEPCION JR Room #: REG [facility] Smith#: [id number] Admission: 03/03/19 Attend Phys: Jose Kaufman MD Discharge: Date of : 36 Report #: [id number] of improvement as he does resolve within about 15 minutes of arising. 4. We will see the patient back in followup visit on an as needed basis. We are hopeful the patient will see good and prolonged benefit with the changes made in therapy today. 5. The patient was provided prescription of hydrocodone/acetaminophen 10/325 1 tab p.o. q. 6 hours p.r.n. for pain. I have given the patient of 120 releasing today, 4 weeks from today, 8 weeks from today, and 3 months' worth of medication. We reviewed the fact that opiate medications are being used to provide analgesia adequate to support activities of daily living, not attempting to achieve a specific pain score on the 0-10 Visual Analog Scale. The current opiate medications are providing sufficient analgesia to allow the patient to participate in activities of daily living. The patient is not exhibiting any aberrant behavior suggestive of drug diversion. The patient is not having any adverse reactions to medications. The patient is not suffering from daytime somnolence or mental acuity changes. The patient is managing opiate-induced constipation with appropriate bmbu-add-ugumxzz agents and dietary considerations. The patient was counseled on concern for caution with operating a motor vehicle while using opiate medications. A physical exam was performed and the patient's functional status was evaluated. All patients with back pain were advised against the bed rest greater than 4 days and were advised to return to normal activities. Pain score assessment was noted and the treatment plan was reviewed with the patient. All current medications, both prescribed and OTC were reviewed and reconciled on the electronic medical record. Tobacco screening was accomplished and smoking cessation was advised when indicated. BMI was noted and diet/exercise modification was recommended for all patients following outside normal parameters. I reviewed with the patient today their responsibilities to safeguard prescription medications, reviewed their responsibility to utilize medications only as prescribed by the physician. They are to seek and receive pain medications only from 1 physician group ( [facility]). They are to use 1 pharmacy and keep the clinic informed if they change pharmacies. Their responsibilities include making followup visits in a timely fashion and to avoid abrupt discontinuation of medication usage. Their responsibilities further include bringing their medications (bottles from the pharmacy with residual pills) to the visit for possible confirmation of pill counts and the patient understands it is their responsibility to submit to random drug screens to ensure both that the medications prescribed are present, and that no other [address] [address] PAIN MANAGEMENT CONSULTATION Name: MALENA CONCEPCION JR Room #: REG [facility] Luis#: [id number] Admission: 03/03/19 Attend Phys: Jose Kaufman MD Discharge: Date of : 36 Report #: [id number] controlled substances are present. All prescriptions provided today were generated electronically. By: [id number] Arnaldo Mayers DO /nt
[2019-03-03 10:20] VITALS: BP 118/70
--- NOTE | 2019-03-03 10:30 | NUR ---
Pain Clinic Assessment: 1. History of Osteoarthritis: BACK HANDS History of Rheumatoid Arthritis: Not Applicable 2. Height: 5 ft. 10 in. 177.8 cm. Weight: 160.0 lb. oz. 72.576 kg. Patient's BMI: 23.0 3. Vital Signs: BP: 118/70 Pulse: 62 Resp: 16 Temp: 02 Sat: 98 ECG Mon: 4. Pain Intensity: 3 5. Fall Risk: Dizziness: N Needs help standing or walking: N Fallen in the last 3 months: N Fall risk comments: 6. Patient on Blood Thinner: None 7. History of Hypertension: Y 8. Opioid Therapy greater than 6 weeks: Y Opiate Contract Signed: 9. Risk Assessment Tool Provided: LOW RISK-0 10. Functional Assessment Tool: 11. Recreational Drug Use: Never Drug Type: Tobacco Use: Never Smoker Tobacco Type: Amount or Packs/day: How Many Years: Alcohol Use: No Frequency: Quant:
== END ==
LOC: PAIN 10:06
DX: M54.5 Low back pain (principal); R07.89 Other chest pain; M48.54XA Collapsed vertebra, not elsewhere classified, thoracic region, initial encounter for fracture; M40.209 Unspecified kyphosis, site unspecified; Z79.899 Other long term (current) drug therapy

== ENCOUNTER → 2019-06-02 | Outpatient (CLI) | payer OTHER, BC ==
[~2019-06-02] VITALS: Ht 177.8 cm; Wt 75.6 kg
[2019-06-02 13:53] VITALS: BP 129/73
--- NOTE | 2019-06-02 14:08 | NUR ---
Pain Clinic Assessment: 1. History of Osteoarthritis: BACK HANDS History of Rheumatoid Arthritis: Not Applicable 2. Height: 5 ft. 10 in. 177.8 cm. Weight: 166.6 lb. oz. 75.569 kg. Patient's BMI: 23.9 3. Vital Signs: BP: 129/73 Pulse: 71 Resp: 14 Temp: 02 Sat: 100 ECG Mon: 4. Pain Intensity: 3 5. Fall Risk: Dizziness: N Needs help standing or walking: N Fallen in the last 3 months: N Fall risk comments: 6. Patient on Blood Thinner: None 7. History of Hypertension: Y 8. Opioid Therapy greater than 6 weeks: Y Opiate Contract Signed: 9. Risk Assessment Tool Provided: LOW RISK-0 10. Functional Assessment Tool: 11. Recreational Drug Use: Never Drug Type: Tobacco Use: Never Smoker Tobacco Type: Amount or Packs/day: How Many Years: Alcohol Use: No Frequency: Quant:
--- NOTE | 2019-06-09 12:58 | HPC ---
[facility] [address] [place] [address] PAIN MANAGEMENT CONSULTATION Name: MALENA CONCEPCION JR [id number] Admission: 06/02/19 Attend Phys: Arnaldo Mayers DO Discharge: Date of : 36 Report #: [id number] THIS REPORT FOR: //name// CC: Arnaldo Kaufman DATE OF SERVICE: 06/02/2019 CHIEF COMPLAINT: Axial back pain. HISTORY OF PRESENT ILLNESS: As you know, the patient is a very pleasant 83-year-old male who suffers from continued thoracic pain due to significant kyphosis and spontaneous vertebral compression fractures, also continues to experience low back pain. We have started the patient on medication management as he is not a candidate for interventional treatments to address chronic compression fractures of the thoracic spine. He trialled TLSO bracing, but this only provided transient improvement. He subsequently discontinued the use of the TLSO bracing and has returned to as much as the activities of daily living as he can. He is coming back today reporting pain score 3/10. He denies new injury, trauma or any changes in medical history since our last visit. The pain he states is alleviated by medications, lying down and utilizing a very specific chair at home and at his office. Overall, the patient states he is doing fairly well, requesting refill on medications at this time. He denies side effects to the therapy. ALLERGIES: No known drug allergies. CURRENT MEDICATIONS: Hydrocodone, Cosopt, gabapentin, multivitamin, aspirin, latanoprost, simvastatin, lisinopril, atenolol. SOCIAL HISTORY: The patient denies tobacco, alcohol, IV or illicit drug use. He is working, not receiving workmen's compensation, unaccompanied today. IMAGING: No new imaging is available. PQRS: The patient has known arthritic changes of the lumbar spine, bilateral hips and knees. No rheumatoid arthritis. Pain today is rated at 3/10. He is not a fall risk, has not had a fall in the last 3 months. He is not on blood thinners, but is treated for hypertension. He is on chronic opioids with a low opioid addiction potential. Pain impact score 13/70, indicating mild interference of daily activities secondary to pain. PHYSICAL EXAMINATION: VITAL SIGNS: Blood pressure 129/73, pulse 71, respiratory rate 14 and unlabored. The patient is 100% on room air. Height 5 feet 10 inches tall, [address] [address] PAIN MANAGEMENT CONSULTATION Name: MALENA CONCEPCION Room #: REG [facility]#: [id number] Admission: 06/02/19 Attend Phys: Arnaldo Mayers DO Discharge: Date of : 36 Report #: [id number] weight 166.6 pounds, BMI calculated 23.9. GENERAL: Well-developed, well-nourished, well-hydrated 83-year-old male appearing stated age, pain is rated today around 3/10. HEENT: Normocephalic, atraumatic. Pupils equal, round, reactive to light. Speech fluent. EXTREMITIES: Show no clubbing, no cyanosis, and no edema. MUSCULOSKELETAL: Palpatory tenderness is once again noted over the thoracic area as well as the lumbar area. No spinous process tenderness. Lower extremity strength appears symmetrical as does the upper extremity strength. There does not appear to be any changes in skin color or texture concerning of rash or lesions. ASSESSMENT: 1. Axial back pain. 2. Severe kyphosis. 3. Multiple vertebral compression fractures, chronic in nature. 4. Anterior chest wall pain. 5. Chronic low back pain. PLAN: 1. The patient returns today in followup visit to continue medication management. He feels medications are working beneficially, reporting pain score today at 3/10. The patient has seen Neurosurgery in regards to his ongoing issues and has been advised that no surgical options exist. He will need to continue medication management and adjust his lifestyle accordingly. He returns today requesting refill on medications. We reviewed the fact that opiate medications are being used to provide analgesia adequate to support activities of daily living, not attempting to achieve a specific pain score on the 0-10 Visual Analog Scale. The current opiate medications are providing sufficient analgesia to allow the patient to participate in activities of daily living. The patient is not exhibiting any aberrant behavior suggestive of drug diversion. The patient is not having any adverse reactions to medications. The patient is not suffering from daytime somnolence or mental acuity changes. The patient is managing opiate-induced constipation with appropriate iikq-utn-koupmts agents and dietary considerations. The patient was counseled on concern for caution with operating a motor vehicle while using opiate medications. A physical exam was performed and the patient's functional status was evaluated. All patients with back pain were advised against the bed rest greater than 4 days and were advised to return to normal activities. Pain score assessment was noted and the treatment plan was reviewed with the patient. All current medications, both prescribed and OTC were reviewed and reconciled on the electronic medical record. Tobacco screening was accomplished and smoking cessation was advised when indicated. BMI was noted and diet/exercise [address] [address] PAIN MANAGEMENT CONSULTATION Name: MALENA CONCEPCION JR Room #: REG [facility] Smith#: [id number] Admission: 06/02/19 Attend Phys: Arnaldo Mayers DO Discharge: Date of : 36 Report #: [id number] modification was recommended for all patients following outside normal parameters. I reviewed with the patient today their responsibilities to safeguard prescription medications, reviewed their responsibility to utilize medications only as prescribed by the physician. They are to seek and receive pain medications only from 1 physician group ( [facility]). They are to use 1 pharmacy and keep the clinic informed if they change pharmacies. Their responsibilities include making followup visits in a timely fashion and to avoid abrupt discontinuation of medication usage. Their responsibilities further include bringing their medications (bottles from the pharmacy with residual pills) to the visit for possible confirmation of pill counts and the patient understands it is their responsibility to submit to random drug screens to ensure both that the medications prescribed are present, and that no other controlled substances are present. All prescriptions provided today were generated electronically. 2. The patient was provided prescription of hydrocodone 10/325 one tab p.o. q. 6 hours p.r.n. for pain. Again, the patient #120. The patient was advised to take the medication as directed, not to take the medication prophylactically. He was given refills of today, 4 weeks from today, 8 weeks from today, 3 months' worth of medication. He appears to be doing well with the therapy. This does allow him to go about most of his activities of daily living without significant pain interference. 3. We will see the patient back in followup visit in 3 months or earlier if interventional treatments are deemed necessary. He will keep us apprised of his ongoing pain and improvement with oral medications. <ELECTRONICALLY SIGNED> By: Arnaldo Mayers DO 06/09/19 [id number] Arnaldo Mayers DO /nt
== END ==
LOC: PAIN 06:59
DX: M48.56XA Collapsed vertebra, not elsewhere classified, lumbar region, initial encounter for fracture (principal); M54.5 Low back pain; R07.89 Other chest pain; M40.209 Unspecified kyphosis, site unspecified

== ENCOUNTER → 2019-11-16 | Outpatient (CLI) | payer OTHER, MEDICARE ==
[~2019-11-16] VITALS: Ht 177.8 cm; Wt 70.3 kg
[2019-11-16 09:17] VITALS: BP 132/66
--- NOTE | 2019-11-16 09:24 | NUR ---
Pain Clinic Assessment: 1. History of Osteoarthritis: BACK HANDS History of Rheumatoid Arthritis: Not Applicable 2. Height: 5 ft. 10 in. 177.8 cm. Weight: 155.0 lb. oz. 70.308 kg. Patient's BMI: 22.2 3. Vital Signs: BP: 132/66 Pulse: 64 Resp: 18 Temp: 02 Sat: 99 ECG Mon: 4. Pain Intensity: 2 5. Fall Risk: Dizziness: N Needs help standing or walking: N Fallen in the last 3 months: N Fall risk comments: 6. Patient on Blood Thinner: None 7. History of Hypertension: Y 8. Opioid Therapy greater than 6 weeks: Y Opiate Contract Signed: 9. Risk Assessment Tool Provided: LOW RISK-0 10. Functional Assessment Tool: 11. Recreational Drug Use: Never Drug Type: Tobacco Use: Never Smoker Tobacco Type: Amount or Packs/day: How Many Years: Alcohol Use: No Frequency: Quant:
--- NOTE | 2019-11-16 14:18 | HPC ---
[facility] [address] [address] PAIN MANAGEMENT CONSULTATION Name: MALENA CONCEPCION Room #: REG [facility] Luis#: [id number] Admission: 11/16/19 Attend Phys: Kena Daniels Discharge: Date of : 36 Report #: [id number] THIS REPORT FOR: cc: Jose Kaufman MD,Jose Daniels,Kena CA ~ CC: Kena Oliveira DATE OF SERVICE: 11/16/2019 CHIEF COMPLAINT: Axial back pain. HISTORY OF PRESENT ILLNESS: As you know, this is a very pleasant 84-year-old gentleman who returns to the pain clinic today following the absence of about 6 months. 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 He has been enjoying his time at home, being active gardening and working around his property. 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 He states his pain score is a 2/10 today, mostly a deep ache that is worse with activity. He feels better when he is sitting and lying down as well as using the medications. He denies any problems with constipation or daytime sleepiness or dizziness as a result of these medicines. The patient is here for a refill of his hydrocodone. He does report to me that he did not realize [facility] would not fill them on a scheduled basis that he had to request them; therefore, he did fill them sporadically in the last 6 months, though it appears that he is due to fill his next prescription on 11/28/2019. Overall, he states he is doing quite well on his current regimen. ALLERGIES: No known drug allergies. CURRENT LIST OF MEDICATIONS: Hydrocodone 10/325 p.r.n., calcium, vitamin B12, Neurontin, Xalatan, Zocor, Tenormin, and Zestril. PQRS: 1. He has known arthritic changes in his lumbar spine, hips and knees. Denies any rheumatoid arthritis. 2. Height is 5 feet 10 inches, weight is 155, BMI is 22. This is a loss of 10 pounds since our last visit. 3. Vital signs, blood pressure 132/66, pulse is 64, respirations 18, oxygen sat is 99. 4. Pain score is 2/10. 5. Denies dizziness, does not need help walking or standing, has not fallen in the last 3 months. 6. He is not on any blood thinners, but does [place] [address] PAIN MANAGEMENT CONSULTATION Name: MALENA CONCEPCION [id number] Admission: 11/16/19 Attend Phys: Kena Daniels Discharge: Date of : 36 Report #: [id number] His opioid therapy is greater than 6 weeks; therefore, an opioid signed contract is on the chart. Risk assessment tool is low. Functional assessment is . 7. Recreational drug use, he denies. He is not a smoker and does not drink alcohol. According to the prescription monitoring system, the patient has been filling only opioids from Dr. Mayers, his morphine mEq is 30 MME per day or less since he is not taking the full prescribed on a daily basis. We will check a random drug screen on him today. PHYSICAL EXAMINATION: GENERAL: This is alert and orientated, well-developed, well-nourished 84-year-old gentleman who appears his stated age, placing his current pain score at 2/10. HEENT: Normocephalic, atraumatic. Pupils equal, round and reactive to light. Speech is fluent. He does have a cruz and a mask on today. EXTREMITIES: No clubbing, no cyanosis, no edema. MUSCULOSKELETAL: He has tenderness over his lower paraspinal musculature in his lumbar area. His lower extremity strength judged to be symmetrical in his upper and lower extremities. ASSESSMENT: 1. Axial back pain. 2. Severe kyphosis. 3. Multiple vertebral compression fractures, chronic in nature. 4. Chronic low back pain. We reviewed the fact that opiate medications are being used to provide analgesia adequate to support activities of daily living, not attempting to achieve a specific pain score on the 0-10 Visual Analog Scale. The current opiate medications are providing sufficient analgesia to allow the patient to participate in activities of daily living. The patient is not exhibiting any aberrant behavior suggestive of drug diversion. The patient is not having any adverse reactions to medications. The patient is not suffering from daytime somnolence or mental acuity changes. The patient is managing opiate-induced constipation with appropriate zpqb-vif-jzzzpjj agents and dietary considerations. The patient was counseled on concern for caution with operating a motor vehicle while using opiate medications. PLAN: 1. We discussed treatment options with the patient today. The patient finds his medications beneficial. He has been enjoying care home and feels like some days he is able to take less medication since he is not having to deal with the public and standing as long periods some months. He has been able to use a prescription for 2 months, then other times now that he has been more active in the garden. He is taking a few more of his pills on a daily basis. [facility] [address] [place] [address] PAIN MANAGEMENT CONSULTATION Name: MALENA CONCEPCION Room #: REG [facility] Luis#: [id number] Admission: 11/16/19 Attend Phys: Kena Daniels Discharge: Date of : 36 Report #: [id number] 2. We will send them electronically to his [facility] pharmacy for hydrocodone , #120 for 3 total months. These will be sent by Dr. Arnaldo Mayers who is collaborating care today and did see the patient as well. 3. We will collect a random drug screen on this patient today. The patient will return in 3 months or as needed for medications. <ELECTRONICALLY SIGNED> By: Kena Daniels 11/16/19 1418 [id number] Kena Daniels /nt
== END ==
LOC: PAIN 06:49
DX: M54.5 Low back pain (principal); M40.299 Other kyphosis, site unspecified; M48.50XA Collapsed vertebra, not elsewhere classified, site unspecified, initial encounter for fracture; Z79.899 Other long term (current) drug therapy

== ENCOUNTER → 2020-02-29 | Outpatient (CLI) | payer OTHER, MEDICARE ==
[~2020-02-29] VITALS: Ht 177.8 cm; Wt 68.5 kg
[2020-02-29 08:35] VITALS: BP 122/70
--- NOTE | 2020-02-29 08:40 | NUR ---
Pain Clinic Assessment: 1. History of Osteoarthritis: BACK HANDS History of Rheumatoid Arthritis: Not Applicable 2. Height: 5 ft. 10 in. 177.8 cm. Weight: 151.0 lb. oz. 68.493 kg. Patient's BMI: 21.7 3. Vital Signs: BP: 122/70 Pulse: 62 Resp: 18 Temp: 02 Sat: 99 ECG Mon: 4. Pain Intensity: 3 5. Fall Risk: Dizziness: N Needs help standing or walking: N Fallen in the last 3 months: N Fall risk comments: 6. Patient on Blood Thinner: None 7. History of Hypertension: Y 8. Opioid Therapy greater than 6 weeks: Y Opiate Contract Signed: 9. Risk Assessment Tool Provided: LOW RISK-0 10. Functional Assessment Tool: 11. Recreational Drug Use: Never Drug Type: Tobacco Use: Never Smoker Tobacco Type: Amount or Packs/day: How Many Years: Alcohol Use: Yes Frequency: Daily Quant: 1 BEER
--- NOTE | 2020-02-29 14:24 | HPC ---
[facility] [address] [place] [address] PAIN MANAGEMENT CONSULTATION Name: MALENA CONCEPCION [facility]: [facility] [id number] Admission: 02/29/20 Attend Phys: Kena Daniels Discharge: Date of : 36 Report #: [id number] THIS REPORT FOR: cc: Jose Kaufman MD, Kenneth MD Hocker,Kena CA ~ CC: Arnaldo Mayers DO DATE OF SERVICE: 02/29/2020 CHIEF COMPLAINT: Axial back pain. HISTORY OF PRESENT ILLNESS: As you know, this is a very pleasant 84-year-old gentleman who returns to the pain clinic today for his ongoing axial back pain. He does take hydrocodone and that does help relieve a significant portion of his pain and keeps him active. 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 He has been enjoying that. He tells me as long as he spaces his activity, his pain remains at 2-3. It is a deep constant ache. He states that lying down does relieve his back pain and he is able to sleep quite well, taking gabapentin. He denies any problems with constipation or daytime somnolence. The patient does report he had a Mohs procedure on his scalp yesterday. He has a significant head dressing in place. They were unable to suture it closed due to the location and size of the Mohs procedure. We reiterated that he does need to keep this clean and dry. If he had problems changing his Band-Aid, he needs to call his custodial officer and ask for assistance and dressing changes. ALLERGIES: No known drug allergies. CURRENT LIST OF MEDICATIONS: Hydrocodone 10/325 p.r.n., calcium, vitamin B12, gabapentin 300 mg, Xalatan, Zocor, atenolol, and lisinopril. PQRS: 1. He has a history of osteoarthritic changes in his back and hands. Denies any rheumatoid arthritis. 2. Height is 5 feet 10 inches, weight is 151. BMI is 21. Vital signs 122/70, pulse is 62, respirations 18, oxygen sat is 99. Pain score is 3/10. 3. Denies dizziness. Does not need help walking or standing, has not fallen in the last 3 months. He is not on any blood thinners, but does take medicine for hypertension. 4. Opioid therapy is greater than 6 weeks; therefore, an opioid signed contract is on the chart. Risk assessment tool is low. Functional assessment is . 5. Recreational drug use, he denies. He is not a smoker and occasionally drinks a beer. [address] [address] PAIN MANAGEMENT CONSULTATION Name: MALENA CONCEPCION Room #: REG [facility] Luis#: [id number] Admission: 02/29/20 Attend Phys: Kena Daniels Discharge: Date of : 36 Report #: [id number] According to the prescription monitoring system, the patient is filling appropriately. He last filled his medication more than a month ago. His morphine milliequivalent is max of 40 MME per day. PHYSICAL EXAMINATION: GENERAL: This is alert and orientated 84-year-old gentleman who is well-developed, well-nourished, placing his current pain score at 3/10. He is a good historian. HEENT: Normocephalic, atraumatic. Pupils equal, round and reactive to light. Speech is fluent. He does have a dressing that is clean, dry and intact on his scalp from Mohs procedure. He is wearing a mask today. EXTREMITIES: No clubbing, no cyanosis, no edema. MUSCULOSKELETAL: He has palpable tenderness over the thoracic area and the lumbar spine. No spinous process tenderness. Lower extremity appears symmetrical as his upper extremity. He has significant kyphosis. ASSESSMENT: 1. Axial back pain. 2. Severe kyphosis. 3. Multiple vertebral fractures, chronic in nature. 4. Chronic low back pain. 5. 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 PLAN: 1. The patient returns in followup visit for continued medication management. He feels that they are working quite well, rating his pain 2-3. He is able to be as active as he would like in his mcc and is requesting refills. Dr. Arnaldo Mayers will send hydrocodone 10/325, #120 electronically to his pharmacy for today, 4-week an 8-week release. We reviewed the fact that opiate medications are being used to provide analgesia adequate to support activities of daily living, not attempting to achieve a specific pain score on the 0-10 Visual Analog Scale. The current opiate medications are providing sufficient analgesia to allow the patient to participate in activities of daily living. The patient is not exhibiting any aberrant behavior suggestive of drug diversion. The patient is not having any adverse reactions to medications. The patient is not suffering from daytime somnolence or mental acuity changes. The patient is managing opiate-induced constipation with appropriate puny-ssc-kjtlghq agents and dietary considerations. The patient was counseled on concern for caution with operating a motor vehicle while using opiate medications. 2. The patient will return on as needed basis. The patient encouraged to keep his dressing clean, dry and intact and notify his custodial officer if he has any concerns on his head wound since it is to heal by granulation. Encouraged him [address] [address] PAIN MANAGEMENT CONSULTATION Name: MALENA CONCEPCION JR Room #: GINGER Smith#: [id number] Admission: 02/29/20 Attend Phys: Kena Daniels Discharge: Date of : 36 Report #: [id number] to have his look at it quite regularly. 3. The patient is seen in collaboration with Dr. Arnaldo Mayers. <ELECTRONICALLY SIGNED> By: Kena Daniels 02/29/20 1424 [id number] Kena Daniels /nt
== END ==
LOC: PAIN 06:40
PROVIDERS: ATTEND Clinical Nurse Specialist Adult Health
DX: M40.209 Unspecified kyphosis, site unspecified (principal); G89.29 Other chronic pain; Z79.891 Long term (current) use of opiate analgesic

== ENCOUNTER → 2020-05-31 | Outpatient (CLI) | payer OTHER, MEDICARE ==
[~2020-05-31] VITALS: Ht 177.8 cm; Wt 70.9 kg
--- NOTE | ~2020-05-31 | HPC ---
[facility] [place] [address] PAIN MANAGEMENT CONSULTATION Name: MALENA CONCEPCION JR Room #: REG [facility] [id number] Admission: 05/31/20 Attend Phys: Kena Daniels Discharge: Date of : 36 Report #: [id number] THIS REPORT FOR: cc: Jose Kaufman MD,Jose Daniels,Kena CA ~ CC: Kena Oliveira DATE OF SERVICE: 05/31/2020 CHIEF COMPLAINT: Chronic axial back pain. HISTORY OF PRESENT ILLNESS: As you know, this is a very pleasant gentleman of 84 years old. He returns to the pain clinic today for refill of his hydrocodone. He does report that this is very beneficial in helping his low back pain. He does have a spinal cord stimulator device that he feels is not beneficial in relieving any of his pain and has since shut it off. He continues to be active since he has retired, working around his property and in his garden and he finds the hydrocodone very beneficial in helping relieve discomfort, rating his pain today at 2/3. He believes his pain is better with sitting as well as sleeping. He denies any problems with constipation or daytime somnolence as a result of his opioid medications. ALLERGIES: No known drug allergies. CURRENT LIST OF MEDICATIONS: Hydrocodone 10/325 p.r.n., calcium, vitamin B12, gabapentin, simvastatin, lisinopril and atenolol. PQRS: 1. 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 Denies any rheumatoid arthritis. 2. Height is 5 feet 10 inches, weight is 156, BMI is 22. 3. Vital signs 125/71, pulse is 66, respirations 14, oxygen sat is 100. 4. Pain score is 2-3. 5. Denies dizziness, does not need help walking or standing, has not fallen in the last 3 months. 6. The patient is not on any blood thinners, but does have a history of hypertension. 7. Opioid therapy is greater than 6 weeks; therefore, an opioid signed contract is on the chart. Risk assessment is low. Functional assessment is . 8. Recreational drug use, he denies. He is a former smoker and occasionally drinks alcohol. According to the prescription monitoring system, he is filling appropriately. [address] [address] PAIN MANAGEMENT CONSULTATION Name: MALENA CONCEPCION Room #: REG MARIA Smith#: [id number] Admission: 05/31/20 Attend Phys: Kena Daniels Discharge: Date of : 36 Report #: [id number] He is due to fill his medications today. His morphine mEq is 44 MME. There is a drug screen on the chart that is appropriate for his medications. PHYSICAL EXAMINATION: GENERAL: This is alert and orientated, well-developed, well-nourished 84-year-old gentleman who appears his stated age, placing his current pain score at 2-3. HEENT: Normocephalic, atraumatic. Extraocular eye muscles are intact. He has a well-healed scar from a recent Mohs procedure on his scalp that is clean, dry with slight redness noted. He is wearing a mask today and glasses. EXTREMITIES: No clubbing, no cyanosis, no edema. MUSCULOSKELETAL: He has palpable tenderness in his thoracic area as well as his lumbar spine with lower extremity strength is symmetrical in his upper and lower extremities. He has significant kyphosis with no scoliosis. Lumbar provocation testing is met with increasing pain. ASSESSMENT: 1. Axial back pain. 2. Severe kyphosis. 3. Multiple vertebral fractures, chronic in nature. 4. Chronic low back pain. We reviewed the fact that opiate medications are being used to provide analgesia adequate to support activities of daily living, not attempting to achieve a specific pain score on the 0-10 Visual Analog Scale. The current opiate medications are providing sufficient analgesia to allow the patient to participate in activities of daily living. The patient is not exhibiting any aberrant behavior suggestive of drug diversion. The patient is not having any adverse reactions to medications. The patient is not suffering from daytime somnolence or mental acuity changes. The patient is managing opiate-induced constipation with appropriate nlzv-wep-siyiete agents and dietary considerations. The patient was counseled on concern for caution with operating a motor vehicle while using opiate medications. A physical exam was performed and the patient's functional status was evaluated. All patients with back pain were advised against the bed rest greater than 4 days and were advised to return to normal activities. Pain score assessment was noted and the treatment plan was reviewed with the patient. All current medications, both prescribed and OTC were reviewed and reconciled on the electronic medical record. Tobacco screening was accomplished and smoking cessation was advised when indicated. BMI was noted and diet/exercise modification was recommended for all patients following outside normal parameters. I reviewed with the patient today their responsibilities to safeguard prescription medications, reviewed their responsibility to utilize medications [facility] [address] [place] [address] PAIN MANAGEMENT CONSULTATION Name: MALENA CONCEPCION Room #: REG [facility] AllanHelder#: [id number] Admission: 05/31/20 Attend Phys: Kena Daniels Discharge: Date of : 36 Report #: [id number] only as prescribed by the physician. They are to seek and receive pain medications only from 1 physician group ( [facility]). They are to use 1 pharmacy and keep the clinic informed if they change pharmacies. Their responsibilities include making followup visits in a timely fashion and to avoid abrupt discontinuation of medication usage. Their responsibilities further include bringing their medications (bottles from the pharmacy with residual pills) to the visit for possible confirmation of pill counts and the patient understands it is their responsibility to submit to random drug screens to ensure both that the medications prescribed are present, and that no other controlled substances are present. All prescriptions provided today were generated electronically. PLAN: 1. We discussed treatment options with the patient today. The patient is happy with the outcome of his Mohs procedure. We did encourage him to wear hats at all times, especially when he is out in the sun. He reports that had taken about 3 months to fully heal, so he is going to be very careful in the future to prevent any further skin cancers, which he has a history of. 2. We will refill his hydrocodone 10/, #120. 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 Arnaldo Mayers will send 3 months of medication electronically to his pharmacy. He did coordinate care today and did see the patient as well. By: [id number] Kena Daniels /jaxson
[2020-05-31 13:01] VITALS: BP 125/71
--- NOTE | 2020-05-31 13:16 | NUR ---
Pain Clinic Assessment: 1. History of Osteoarthritis: BACK HANDS History of Rheumatoid Arthritis: Not Applicable 2. Height: 5 ft. 10 in. 177.8 cm. Weight: 156.2 lb. oz. 70.852 kg. Patient's BMI: 22.4 3. Vital Signs: BP: 125/71 Pulse: 66 Resp: 14 Temp: 02 Sat: 100 ECG Mon: 4. Pain Intensity: 2 TO 3 5. Fall Risk: Dizziness: N Needs help standing or walking: N Fallen in the last 3 months: N Fall risk comments: 6. Patient on Blood Thinner: None 7. History of Hypertension: Y 8. Opioid Therapy greater than 6 weeks: Y Opiate Contract Signed: 9. Risk Assessment Tool Provided: LOW RISK-0 10. Functional Assessment Tool: 11. Recreational Drug Use: Never Drug Type: Tobacco Use: Former Smoker Tobacco Type: Amount or Packs/day: How Many Years: Alcohol Use: Yes Frequency: Quant:
== END ==
LOC: PAIN 06:48
PROVIDERS: ATTEND Clinical Nurse Specialist Adult Health
DX: M19.042 Primary osteoarthritis, left hand (principal); M19.041 Primary osteoarthritis, right hand; M40.209 Unspecified kyphosis, site unspecified; M54.5 Low back pain

== ENCOUNTER → 2020-08-01 | Outpatient (CLI) | payer OTHER, MEDICARE ==
[~2020-08-01] VITALS: Ht 177.8 cm; Wt 73.5 kg
[2020-08-01 09:48] VITALS: BP 123/60
--- NOTE | 2020-08-01 09:55 | NUR ---
Pain Clinic Assessment: 1. History of Osteoarthritis: BACK HANDS History of Rheumatoid Arthritis: Not Applicable 2. Height: 5 ft. 10 in. 177.8 cm. Weight: 162.0 lb. oz. 73.483 kg. Patient's BMI: 23.2 3. Vital Signs: BP: 123/60 Pulse: 55 Resp: 16 Temp: 02 Sat: 98 ECG Mon: 4. Pain Intensity: 3 5. Fall Risk: Dizziness: N Needs help standing or walking: N Fallen in the last 3 months: N Fall risk comments: 6. Patient on Blood Thinner: None 7. History of Hypertension: Y 8. Opioid Therapy greater than 6 weeks: Y Opiate Contract Signed: 9. Risk Assessment Tool Provided: LOW RISK-0 10. Functional Assessment Tool: 11. Recreational Drug Use: Never Drug Type: Tobacco Use: Former Smoker Tobacco Type: Amount or Packs/day: How Many Years: Alcohol Use: Yes Frequency: Daily Quant: 1 BEER
--- NOTE | 2020-08-02 15:51 | HPC ---
[facility] [address] [address] PAIN MANAGEMENT CONSULTATION Name: MALENA CONCEPCION Room #: REG MARIA Smith#: [id number] Admission: 08/01/20 Attend Phys: Kena Daniels Discharge: Date of : 36 Report #: [id number] THIS REPORT FOR: cc: Jose Kaufman MD, Kenneth MD Hocker,Kena CA ~ DATE OF SERVICE: 08/01/2020 CHIEF COMPLAINT: Chronic axial back pain. HISTORY OF PRESENT ILLNESS: This is a very pleasant 85-year-old gentleman who returns to the pain clinic today for refill of his opioid medications and discussion regarding changes in his insurance. The patient is stating his pain score today is a 3/10. It is located in his low back with no radicular symptoms. He describes it as a deep aching sensation that is worse with activity. Recently, he has been cutting down trees and that does aggravate his back pain. Overall, he believes the medication as well as sitting and resting have been very beneficial. He does occasionally use MiraLax for constipation issues, otherwise manages this side effect with dietary supplements. ALLERGIES: No known drug allergies. CURRENT LIST OF MEDICATIONS: Hydrocodone 10/325 p.r.n., calcium, vitamin B12, Cosopt drops, gabapentin, Xalatan drops, simvastatin, atenolol, lisinopril, MiraLax. PQRS: 1. He has a history of osteoarthritic changes in his spine as well as his hands. He denies being treated for rheumatoid arthritis. 2. Height is 5 feet 10 inches, weight is 162, BMI is 23. 3. Vital signs 123/60, pulse is 55, respirations 16, oxygen sat is 98%. 4. Pain score is 3/10. 5. Denies dizziness, does not need assistance with ambulation. Has not fallen in the last 3 months. 6. The patient is not on any blood thinners, but does take medicine for hypertension. 7. Opioid therapy is greater than 6 weeks; therefore, an opioid signed contract is on the chart. Risk assessment is low. Functional assessment is . 8. Recreational drug use, he denies. He is a former smoker and occasionally drinks alcohol. According to the prescription monitoring system, he is filling appropriately. His morphine mEq is 40 MME or below. There is a urine drug screen on the chart that is appropriate for his medications. PHYSICAL EXAMINATION: [address] [address] PAIN MANAGEMENT CONSULTATION Name: MALENA CONCEPCION JR Room #: REG Micy[facility] Smith#: [id number] Admission: 08/01/20 Attend Phys: Kena Daniels Discharge: Date of : 36 Report #: [id number] GENERAL: This is alert and orientated, very pleasant 85-year-old gentleman who is a good historian. He appears his stated age, placing his current pain score at 3/10 today. HEENT: Normocephalic, atraumatic. Extraocular eye muscles are intact. He is wearing a mask. EXTREMITIES: No clubbing, no cyanosis, no edema. MUSCULOSKELETAL: Lumbar provocation testing is met with increasing pain across his lumbar region. He has significant scoliosis with no signs of kyphosis. His lower extremity strength is symmetrical in upper and lower extremities at 5/5. ASSESSMENT: 1. Axial back pain. 2. Severe kyphosis. 3. Multiple vertebral fractures that are chronic. 4. Chronic low back pain. 5. Opioid medication management under written agreement. PLAN: 1. We discussed treatment options with the patient today. The patient reports he recently changed insurance companies for his prescription plan. They are only allowing a 7-day supply of his opioids. The patient has been stable on his current dose for several years, but is dependent on this medication. I believe once he fills the 7-day supply, they will fill the full 120, 30-day supply of tablets, but we will call his pharmacy to verify this or do prior authorization for this patient. 2. Dr. Arnaldo Mayers will send an additional 3 months of medication for him of hydrocodone 10/325, #120 for today 4 week an 8-week release. 3. We did discuss the COVID vaccination. The patient is attempting to have his vaccinations through [facility]. I encouraged him to call his primary care office as well as his [facility] to see if he may obtain his vaccinations there for he and his . The patient is seen today in collaboration with Dr. Arnaldo Mayers. He will return in 3 months. <ELECTRONICALLY SIGNED> By: Kena Daniels 08/02/20 1551 [id number] Kena Daniels /jaxson
== END ==
LOC: PAIN 06:52
PROVIDERS: ATTEND Clinical Nurse Specialist Adult Health
DX: M54.5 Low back pain (principal); G89.29 Other chronic pain; M40.299 Other kyphosis, site unspecified; F11.20 Opioid dependence, uncomplicated

== ENCOUNTER → 2020-11-08 | Outpatient (CLI) | payer OTHER, MEDICARE ==
[~2020-11-08] VITALS: Ht 177.8 cm; Wt 71.0 kg
[2020-11-08 10:11] VITALS: BP 113/63
--- NOTE | 2020-11-08 10:20 | NUR ---
Pain Clinic Assessment: 1. History of Osteoarthritis: BACK HANDS History of Rheumatoid Arthritis: Not Applicable 2. Height: 5 ft. 10 in. 177.8 cm. Weight: 156.6 lb. oz. 71.033 kg. Patient's BMI: 22.5 3. Vital Signs: BP: 113/63 Pulse: 63 Resp: 14 Temp: 02 Sat: 100 ECG Mon: 4. Pain Intensity: 3-4 5. Fall Risk: Dizziness: N Needs help standing or walking: N Fallen in the last 3 months: N Fall risk comments: 6. Patient on Blood Thinner: None 7. History of Hypertension: Y 8. Opioid Therapy greater than 6 weeks: Y Opiate Contract Signed: 9. Risk Assessment Tool Provided: LOW RISK-0 10. Functional Assessment Tool: 11. Recreational Drug Use: Never Drug Type: Tobacco Use: Former Smoker Tobacco Type: Amount or Packs/day: How Many Years: Alcohol Use: Yes Frequency: Quant:
--- NOTE | 2020-11-09 15:26 | HPC ---
[facility] [address] [place] [address] PAIN MANAGEMENT CONSULTATION Name: MALENA CONCEPCION Room #: [facility] [id number] Admission: 11/08/20 Attend Phys: Kena Daniels Discharge: Date of : 36 Report #: [id number] THIS REPORT FOR: cc: Jose Kaufman MD, Kenneth MD Hocker,Kena CA ~ DOC #: [id number] cc:Arnaldo Mayers DO DATE OF SERVICE: 11/08/2020 CHIEF COMPLAINT: Chronic axial back pain. HISTORY OF PRESENT ILLNESS: This is a very pleasant 85-year-old gentleman who is well known to the pain clinic for his ongoing chronic low back issues. Today, the patient is describing his pain in his lower back as a deep ache, stating it is a 3-4/10 today. His pain is increased with significant activity, but overall he believes his medication is beneficial as well as rest and sitting. According to our records, the patient was last here in July and has been able to have his medications last about 4 months. He describes less activity in the winter months and knows he will begin gardening more and that will increase his pain as well as cutting wood during the summer months. Today, he would like refills of his opioid medications. The patient reports having the COVID vaccine in August and he is very thankful for that. He is considering starting physical therapy again now that he is vaccinated. He believes that this will help strengthen some of his lower extremities. The patient also reports having a colonoscopy. He does have a history of colon cancer that was negative in August, which he is grateful for. ALLERGIES: No known drug allergies. CURRENT LIST OF MEDICATIONS: Hydrocodone 10/325 p.r.n., calcium, vitamin B12, gabapentin, Xalatan, Cosopt drops, Zocor, Tenormin, lisinopril. PQRS: 1. He has osteoarthritic changes in his spine as well as his hands. Denies any rheumatoid arthritis. 2. Height is 5 feet 10 inches, weight is 156. BMI is 22. 3. Vital signs: Blood pressure 113/63, pulse is 63, respirations 14, oxygen sat is 100. 4. Pain score is 3-4. 5. Denies dizziness. Does not need help walking or standing. Has not fallen in the last 3 months. 6. The patient is not on any blood thinners but does take medicine for hypertension. [facility] [address] [place] [address] PAIN MANAGEMENT CONSULTATION Name: MALENA CONCEPCION JR Room #: REG [facility]#: [id number] Admission: 11/08/20 Attend Phys: Kena Daniels Discharge: Date of : 36 Report #: [id number] 7. Opioid therapy is greater than 6 weeks; therefore, an opioid signed contract is on the chart. 8. Risk assessment is low. 9. Functional assessment . 10. Recreational drug use, he denies. He is a former smoker and occasionally drinks alcohol. According to the prescription monitoring system, the patient is slightly past due to fill his opioid medications. He has been able to take less medications. Therefore, his morphine milliequivalent is 30-40 MME per day depending on his dose. We will collect a random drug screen at his next appointment as it would have been greater than 1 year since his previous one that was appropriate for his medications. PHYSICAL EXAMINATION: GENERAL: This is alert and orientated, well-developed, thin 85-year-old gentleman who appears his stated age, rating his pain score today at 3-4/10. HEENT: Normocephalic, atraumatic. Extraocular eye muscles are intact. He is wearing glasses and a mask. EXTREMITIES: No clubbing, no cyanosis and no appreciable edema. MUSCULOSKELETAL: Lumbar provocation testing is met with increasing pain across his lumbar region, consistent with axial back pain. He has significant kyphosis of his spine. Lower extremity strength is symmetrical at 5/5. ASSESSMENT: 1. Axial back pain. 2. Severe kyphosis. 3. Multiple compression fractures that are chronic in nature. 4. Chronic low back pain. 5. Complex opioid medication management under written agreement. We reviewed the fact that opiate medications are being used to provide analgesia adequate to support activities of daily living, not attempting to achieve a specific pain score on the 0-10 Visual Analog Scale. The current opiate medications are providing sufficient analgesia to allow the patient to participate in activities of daily living. The patient is not exhibiting any aberrant behavior suggestive of drug diversion. The patient is not having any adverse reactions to medications. The patient is not suffering from daytime somnolence or mental acuity changes. The patient is managing opiate-induced constipation with appropriate htwo-pdx-wgitvoh agents and dietary considerations. The patient was counseled on concern for caution with operating a motor vehicle while using opiate medications. PLAN: 1. We discussed treatment options with the patient today. The patient has been able to utilize slightly less of his medications in these past few months due to [facility] [address] [place] [address] PAIN MANAGEMENT CONSULTATION Name: MALENA CONCEPCION JR Room #: REG MARIA Smith#: [id number] Admission: 11/08/20 Attend Phys: Kena Daniels Discharge: Date of : 36 Report #: [id number] less activity during the winter. He reports he will utilize most of his medications in a month when he is more active outside, which he is already planted his garden and looking forward to doing other activities outside now that the weather is nice. We will have Dr. Arnaldo Mayers continue his hydrocodone , #120. These will be sent electronically to his pharmacy for the next 3 months. 2. We did discuss physical therapy. The patient finds this helpful in strengthening his lower extremities which he believes has diminished in strength since he has not been as active during COVID. He would like to start and is wondering if this is safe. He has had both his COVID vaccines and I see no reason for him not to attend physical therapy. He refuses script from us. He reports he will get that from his primary care office and attend ____ which he has had good response from in the past. Time spent in consultation, reviewing recent studies and clinical notes and physician reports, physical examination and correlation of physical findings and medical documentation to determine possible treatments, 12 minutes. Time spent in preparation for appointment, reviewing prescription monitoring system, reviewing previous records and treatment options, reviewing medications, 5 minutes. Time spent in preparation and sending electronic prescriptions with physician that is collaborating Dr. Arnaldo Mayers and documentation of visit and plan of treatment, 5 minutes. Total time spent 22 minutes. [employer] <ELECTRONICALLY SIGNED> By: Kena Daniels 11/09/20 1526 [id number] Kena Daniels /nt
== END ==
LOC: PAIN 08:38
PROVIDERS: ATTEND Clinical Nurse Specialist Adult Health
DX: M54.5 Low back pain (principal); M40.209 Unspecified kyphosis, site unspecified; G89.29 Other chronic pain; F11.20 Opioid dependence, uncomplicated

== ENCOUNTER → 2021-02-06 | Outpatient (CLI) | payer OTHER, MEDICARE ==
[~2021-02-06] VITALS: Ht 177.8 cm; Wt 70.2 kg
[2021-02-06 10:39] VITALS: BP 129/71
--- NOTE | 2021-02-06 10:52 | NUR ---
Pain Clinic Assessment: 1. History of Osteoarthritis: BACK HANDS History of Rheumatoid Arthritis: Not Applicable 2. Height: 5 ft. 10 in. 177.8 cm. Weight: 154.8 lb. oz. 70.217 kg. Patient's BMI: 22.2 3. Vital Signs: BP: 129/71 Pulse: 57 Resp: 14 Temp: 02 Sat: 99 ECG Mon: 4. Pain Intensity: 4 5. Fall Risk: Dizziness: N Needs help standing or walking: N Fallen in the last 3 months: N Fall risk comments: 6. Patient on Blood Thinner: None 7. History of Hypertension: Y 8. Opioid Therapy greater than 6 weeks: Y Opiate Contract Signed: 9. Risk Assessment Tool Provided: LOW RISK-0 10. Functional Assessment Tool: 11. Recreational Drug Use: Never Drug Type: Tobacco Use: Former Smoker Tobacco Type: Amount or Packs/day: How Many Years: Alcohol Use: Yes Frequency: Monthly Quant: 2 BEER
--- NOTE | 2021-02-07 10:05 | HPC ---
[facility] [address] [address] PAIN MANAGEMENT CONSULTATION Name: MALENA CONCEPCION JR Room #: REG MARIA MosesHelderFelipe.#: [id number] Admission: 02/06/21 Attend Phys: Arnaldo Mayers DO Discharge: Date of : 36 Report #: [id number] THIS REPORT FOR: cc: Jose Kaufman MD,Arnaldo Abebe MD, DO ~ cc: Jose Kaufman M.D. DATE OF SERVICE: 02/06/2021 REFERRING PHYSICIAN: Jose Kaufman M.D. CHIEF COMPLAINT: Chronic low back pain. HISTORY OF PRESENT ILLNESS: As you know, the patient is a very pleasant 85-year-old male returning to our pain clinic requesting refill of medications. He feels medications are working beneficially for pain control. He is placing pain around 4/10. He remains active on a daily basis, working around his home and taking morning strolls. He states that overall he is doing very well. He is denying side effects to medication including sleepiness, disorientation, confusion, mental slowing or constipation. He has been taking his medications as directed. He was last seen in our clinic by our nurse practitioner 3 months ago receiving refills of hydrocodone for pain control. We have reviewed the patient's PDMP and there are no concerning entries on either of the [place] or [place] reports. He returns today in followup visit requesting refill on medications. He feels they are working beneficially. He denies any need for alteration in treatment at this point. ALLERGIES: No known drug allergies. CURRENT MEDICATIONS: Lisinopril 20 mg once a day, atenolol 25 mg once a day, simvastatin 40 mg per day, latanoprost 1 drop each eye per day, gabapentin 300 mg p.o. at bedtime, Cosopt 1 drop each eye per day, cyanocobalamin 5000 mcg per day, calcium carbonate 1 tab per day, and hydrocodone/acetaminophen 10/325 mg 1 dose every 6 hours p.r.n. for pain. SOCIAL HISTORY: The patient denies tobacco, alcohol or IV or illicit drug use. He retired 487 days ago. He is doing very well. He is unaccompanied at today's visit. IMAGING: No new imaging available. PQRS: The patient has known arthritic changes of the cervical spine, lumbar spine, bilateral hands and knees. No rheumatoid arthritis. He is placing pain score today about 4/10. He is not a fall risk, has not had a fall in last 3 months. He is not on blood thinners, but is treated for hypertension. He is on chronic opioids, has a low opioid addiction potential based on assessment tool. [address] [address] PAIN MANAGEMENT CONSULTATION Name: MALENA CONCEPCION Room #: REG [facility] [id number] Admission: 02/06/21 Attend Phys: Arnaldo Mayers DO Discharge: Date of : 36 Report #: [id number] Pain impact is 15/70, mild interference of daily activities secondary to pain. PHYSICAL EXAMINATION: VITAL SIGNS: Blood pressure 129/71, pulse 57, respiratory rate 14 and unlabored. The patient is 99% on room air. Height 5 feet 10 inches tall, weight 154.8 pounds, BMI calculated 22.2. GENERAL: Well-developed, well-nourished, well-hydrated 85-year-old male. He appears stated age, pain is rated around 4/10. HEENT: Normocephalic, atraumatic. Pupils equal, round and responsive. He is wearing a mask in compliance with COVID-19 regulations. EXTREMITIES: Show no clubbing, no cyanosis and no edema. MUSCULOSKELETAL: Lower extremity strength equal and symmetrical, 5/5. Muscle bulk and tone is symmetrical comparing lower extremities. Seated straight leg raising negative. Supine straight leg raising negative. SHANON test is negative. Modified Gaenslen's met with axial back pain, no radiation of symptoms. Lumbar provocation testing is met with increasing pain with rotation and lateral flexion. ASSESSMENT: 1. 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 2. Spinal stenosis of lumbar spine. 3. Lumbar degeneration. 4. Facet arthropathy of lumbar spine. 5. Chronic low back pain. PLAN: 1. The patient returns today in followup visit requesting refill on medications. He feels the medications are working beneficially for pain control. The patient is denying any potential side effects to medication including sleepiness, disorientation, confusion, mental slowing or constipation with their use. He is very pleased with response to medication, wishing to continue therapy at current dosing. 2. We reviewed the fact that opiate medications are being used to provide analgesia adequate to support activities of daily living, not attempting to achieve a specific pain score on the 0-10 Visual Analog Scale. The current opiate medications are providing sufficient analgesia to allow the patient to participate in activities of daily living. The patient is not exhibiting any aberrant behavior suggestive of drug diversion. The patient is not having any adverse reactions to medications. The patient is not suffering from daytime somnolence or mental acuity changes. The patient is managing opiate-induced constipation with appropriate orfg-noz-pezvyyj agents and dietary considerations. The patient was counseled on concern for caution with operating a motor vehicle while using opiate medications. A physical exam was performed and the patient's functional status was evaluated. [facility] [address] [place] [address] PAIN MANAGEMENT CONSULTATION Name: MALENA CONCEPCION JR Room #: REG [facility].#: [id number] Admission: 02/06/21 Attend Phys: Arnaldo Mayers DO Discharge: Date of : 36 Report #: [id number] All patients with back pain were advised against the bed rest greater than 4 days and were advised to return to normal activities. Pain score assessment was noted and the treatment plan was reviewed with the patient. All current medications, both prescribed and OTC were reviewed and reconciled on the electronic medical record. Tobacco screening was accomplished and smoking cessation was advised when indicated. BMI was noted and diet/exercise modification was recommended for all patients following outside normal parameters. I reviewed with the patient today their responsibilities to safeguard prescription medications, reviewed their responsibility to utilize medications only as prescribed by the physician. They are to seek and receive pain medications only from 1 physician group ( [facility]). They are to use 1 pharmacy and keep the clinic informed if they change pharmacies. Their responsibilities include making followup visits in a timely fashion and to avoid abrupt discontinuation of medication usage. Their responsibilities further include bringing their medications (bottles from the pharmacy with residual pills) to the visit for possible confirmation of pill counts and the patient understands it is their responsibility to submit to random drug screens to ensure both that the medications prescribed are present, and that no other controlled substances are present. All prescriptions provided today were generated electronically. 3. The patient was provided prescription of hydrocodone/acetaminophen 10/325 mg dose 1 tab p.o. q. 6 hours p.r.n. for pain. I have given the patient #120 tablets, released today, 4 weeks from today, 8 weeks from today, 3 months' worth of medication. 4. The patient was provided refill prescription of his gabapentin 300 mg dose. I have given him #90 tablets, a 3-month prescription with multiple refills. Prescription was sent via e-scribe to local pharmacy. 5. We plan to see the patient back in followup visit in 3 months for medication management. I did advise the patient if he wishes to return earlier to discuss the interventional treatment options or needs to make further adjustments in medication management, contact our clinic. <ELECTRONICALLY SIGNED> By: Arnaldo Mayers DO 02/07/21 1005 [id number] 0821 Arnaldo Mayers DO /nt
== END ==
LOC: PAIN 07:04
PROVIDERS: ATTEND Anesthesiology Pain Medicine
DX: M47.27 Other spondylosis with radiculopathy, lumbosacral region (principal); M48.061 Spinal stenosis, lumbar region without neurogenic claudication; G89.29 Other chronic pain; Z79.899 Other long term (current) drug therapy; Z79.891 Long term (current) use of opiate analgesic

== ENCOUNTER → 2021-05-08 | Outpatient (CLI) | payer OTHER, MEDICARE ==
[~2021-05-08] VITALS: Ht 177.8 cm; Wt 71.8 kg
[2021-05-08 11:12] VITALS: BP 104/59
--- NOTE | 2021-05-08 15:11 | HPC ---
[facility] [address] [place] [address] PAIN MANAGEMENT CONSULTATION Name: MALENA CONCEPCION JR Room #: REG MARIA MosesHelderFelipe.#: [id number] Admission: 05/08/21 Attend Phys: Arnaldo Mayers DO Discharge: Date of : 36 Report #: [id number] THIS REPORT FOR: cc: Jose Kaufman MD,Arnaldo Abebe MD, DO ~ cc: Jose Kaufman MD DATE OF SERVICE: 05/08/2021 CHIEF COMPLAINT: Chronic low back pain. HISTORY OF PRESENT ILLNESS: As you know, the patient is a very pleasant 85-year-old male returning in followup visit requesting refill on medications. He feels medications are continuing to work beneficially for pain control. The patient is able to participate in all the activities of daily living without significant pain interference. He continues to work around his home, doing [employer] in preparation for the coming winter. He is very pleased with response to treatment, denying side effects of sleepiness, disorientation, confusion, mental slowing with the use of the medications. The combination works very well for him to continue participating in daily activities. He has been very appropriate with his medications. He has followed the opioid contract to the letter. He has submitted urine drug screens, which have all been appropriate. He returns today requesting refill on medications. ALLERGIES: No known drug allergies. CURRENT MEDICATIONS: Gabapentin 300 mg 3 times a day, hydrocodone/acetaminophen 10/325 mg 1 tab p.o. q. 6 hours p.r.n. pain, calcium carbonate 1 tab per day, vitamin B12 5000 mcg per day, Cosopt 1 drop each eye b.i.d., latanoprost 1 drop b.i.d., simvastatin 40 mg per day, atenolol 25 mg per day, lisinopril 20 mg per day. SOCIAL HISTORY: The patient denies tobacco, alcohol or IV or illicit drug use. He is retired, doing very well. He is unaccompanied today. IMAGING: No new imaging available. PQRS: The patient has known arthritic changes of the cervical spine, lumbar spine, bilateral hands. No rheumatoid arthritis. He is placing current pain score 3/10. He is not a fall risk, not had a fall in the last 3 months. He is not on blood thinners, but is treated for hypertension. He is on chronic opioids, has a low opioid addiction potential based on assessment tool. Pain impact 15/70, mild interference of daily activities secondary to pain. PHYSICAL EXAM: VITAL SIGNS: Blood pressure 104/59, pulse 64, respiratory rate [address] [address] PAIN MANAGEMENT CONSULTATION Name: MALENA CONCEPCION Room #: REG [facility].#: [id number] Admission: 05/08/21 Attend Phys: Arnaldo Mayers DO Discharge: Date of : 36 Report #: [id number] unlabored. The patient 100% on room air. Height 5 feet 10 inches tall, weight 158.2 pounds, BMI calculated 22.7. GENERAL: Well-developed, well-nourished, well-hydrated 85-year-old male appearing stated age. He is placing current pain score around 3/10. HEENT: Normocephalic, atraumatic. Pupils equal, round and responsive. He is wearing a mask in compliance with COVID-19 regulations. EXTREMITIES: Show no clubbing, no cyanosis. No appreciable edema. MUSCULOSKELETAL: Palpatory tenderness is noted over the paraspinal musculature of lower lumbar spine. No spinous process tenderness. Seated straight leg raising is negative. Supine straight leg raising negative. Modified Gaenslen is positive for axial low back pain, no radiation of symptoms. Lumbar provocation testing including extension, rotation, lateral flexion all intensify axial back pain, but this is minimal in nature. ASSESSMENT: 1. Lumbosacral spondylosis without radiculopathy or myelopathy. 2. Spinal stenosis of lumbar spine. 3. Lumbar degeneration. 4. Facet arthropathy of lumbar spine. 5. Chronic intractable pain. PLAN: 1. The patient returns today in followup visit requesting refill on medications. He feels medications are working beneficially for pain control. The patient is placing pain no greater than 3/10 and this is when he is most active in the daytime hours. Overall, the patient states he is doing very well and requesting refill on the current dosing of medications. He denies sleepiness, disorientation, confusion, mental slowing with the medication. No constipation issues that cannot be treated with czdp-iys-fvabpdm treatment and therapies. He is very pleased with the response to treatment and wishing to continue with therapy. 2. We have reviewed the patient's PDMP both on the [place] and [place] reports, no concerning entries. We did review with the patient the opioid contract he has signed in good josé miguel with our clinic. He has been following the stipulations and requirements of that opioid contract without issues. We reviewed the fact that opiate medications are being used to provide analgesia adequate to support activities of daily living, not attempting to achieve a specific pain score on the 0-10 Visual Analog Scale. The current opiate medications are providing sufficient analgesia to allow the patient to participate in activities of daily living. The patient is not exhibiting any aberrant behavior suggestive of drug diversion. The patient is not having any adverse reactions to medications. The patient is not suffering from daytime somnolence or mental acuity changes. The patient is managing opiate-induced constipation with appropriate aqpr-nai-npkofal agents and dietary considerations. The patient was counseled on concern for caution with operating [facility] [address] [place] [address] PAIN MANAGEMENT CONSULTATION Name: MALENA CONCEPCION JR Room #: [facility] [id number] Admission: 05/08/21 Attend Phys: Arnaldo Mayers DO Discharge: Date of : 36 Report #: [id number] a motor vehicle while using opiate medications. A physical exam was performed and the patient's functional status was evaluated. All patients with back pain were advised against the bed rest greater than 4 days and were advised to return to normal activities. Pain score assessment was noted and the treatment plan was reviewed with the patient. All current medications, both prescribed and OTC were reviewed and reconciled on the electronic medical record. Tobacco screening was accomplished and smoking cessation was advised when indicated. BMI was noted and diet/exercise modification was recommended for all patients following outside normal parameters. I reviewed with the patient today their responsibilities to safeguard prescription medications, reviewed their responsibility to utilize medications only as prescribed by the physician. They are to seek and receive pain medications only from 1 physician group ([facility]). They are to use 1 pharmacy and keep the clinic informed if they change pharmacies. Their responsibilities include making followup visits in a timely fashion and to avoid abrupt discontinuation of medication usage. Their responsibilities further include bringing their medications (bottles from the pharmacy with residual pills) to the visit for possible confirmation of pill counts and the patient understands it is their responsibility to submit to random drug screens to ensure both that the medications prescribed are present, and that no other controlled substances are present. All prescriptions provided today were generated electronically. 3. The patient was provided prescription of hydrocodone/acetaminophen 10/325, one tab p.o. q. 6 hours p.r.n. pain. I have given the patient #120 releasing today, 4 weeks from today, 8 weeks from today, 3 months' worth of medication. All prescriptions sent via e-scribe to local pharmacy. 4. The patient was provided prescription of gabapentin 300 mg dose 1 tab p.o. t.i.d. I have provided the patient #90 tablets, 2 refills, 3 months' worth of medications. These were sent to his local pharmacy. 5. We plan to see the patient back in followup visit in 3 months for medication management. We are hopeful the patient will continue to see good improvement. If he wishes, he can return earlier if interventional treatments might be warranted. <ELECTRONICALLY SIGNED> By: Arnaldo Mayers DO 05/08/21 1511 [id number] Arnaldo Mayers DO /nt
== END ==
LOC: PAIN 07:04
PROVIDERS: ATTEND Anesthesiology Pain Medicine
DX: M47.27 Other spondylosis with radiculopathy, lumbosacral region (principal); M47.26 Other spondylosis with radiculopathy, lumbar region; M48.061 Spinal stenosis, lumbar region without neurogenic claudication; G89.29 Other chronic pain; Z79.899 Other long term (current) drug therapy

== ENCOUNTER → 2021-07-31 | Outpatient (CLI) | payer OTHER, MEDICARE ==
[~2021-07-31] VITALS: Ht 175.3 cm; Wt 72.6 kg
[2021-07-31 11:14] VITALS: BP 133/53
--- NOTE | 2021-07-31 11:14 | NUR ---
Pain Clinic Assessment: 1. History of Osteoarthritis: BACK HANDS History of Rheumatoid Arthritis: Not Applicable 2. Height: 5 ft. 9 in. 175.3 cm. Weight: 160.0 lb. oz. 72.576 kg. Patient's BMI: 23.6 3. Vital Signs: BP: 133/53 Pulse: 57 Resp: 16 Temp: 02 Sat: 99 ECG Mon: 4. Pain Intensity: 3 5. Fall Risk: Dizziness: N Needs help standing or walking: N Fallen in the last 3 months: N Fall risk comments: 6. Patient on Blood Thinner: None 7. History of Hypertension: Y 8. Opioid Therapy greater than 6 weeks: Y Opiate Contract Signed: 9. Risk Assessment Tool Provided: LOW RISK-0 10. Functional Assessment Tool: 11. Recreational Drug Use: Never Drug Type: Tobacco Use: Former Smoker Tobacco Type: Amount or Packs/day: How Many Years: Alcohol Use: No Frequency: Quant:
== END ==
LOC: PAIN 09:12
PROVIDERS: ATTEND Clinical Nurse Specialist Adult Health
DX: M47.816 Spondylosis without myelopathy or radiculopathy, lumbar region (principal); M51.26 Other intervertebral disc displacement, lumbar region; M48.061 Spinal stenosis, lumbar region without neurogenic claudication; G89.29 Other chronic pain; Z87.891 Personal history of nicotine dependence; Z79.899 Other long term (current) drug therapy